=== PATIENT | female | born 1970 | race African-American/Black ===

== ENCOUNTER 2017-03-02 12:56 | Inpatient (IN) ==
[2017-03-02] MEDS ORDERED: HEPARIN LOCK FLUSH 500 UNIT/5 ML SYRINGE IV ONE (14:45)
[2017-03-02] MEDS ORDERED: VANCOMYCIN INJ 1,000 MG in SODIUM CHLORIDE 0.9% 250 ML IV STA (15:05)
[2017-03-02] MEDS ORDERED: VANCOMYCIN 1,000 MG VIAL ONE (15:17)
[2017-03-02] MEDS ORDERED: METOPROLOL TARTRATE 5 MG/5 ML VIAL IV ONE (15:18)
[2017-03-02 15:20] LABS: Basophils % 0.3 % (0.0-0.8); Eosinophils # 0.2 10*3/uL (0.0-0.87); Eosinophils % 3.4 % (0.00-10.9); Hematocrit 38.1 VOL% (35.7-47.0); Hemoglobin 11.4 GM/DL (12.0-16.0); Immature Granulocytes % 0.3 %; Immature Granulocytes Absolute 0.02 #; Lymphocytes # 2.5 10*3/uL (1.4-4.0); Lymphocytes % 35.4 % (21.3-54.2); Mean Corpuscular HGB Conc 29.9 GM/DL (32-36); Mean Corpuscular Hemoglobin 28 PG (27-34); Mean Corpuscular Volume 93.2 FL (87-102); Mean Platelet Volume 12.4 FL (9.6-12.0); Monocytes # 0.6 10*3/uL (0.11-0.8); Monocytes % 8.7 % (1.7-12.7); Neutrophils # 3.7 10*3/uL (1.4-7.4); Neutrophils % 51.9 % (38.7-73.9); Platelet Count 171 T/CUMM (130-400); Red Blood Count 4.09 MC/CUMM (3.8-5.5); Red Cell Distribution Width 16.6 % (9.3-17.3)
[2017-03-02 15:36] LABS: Calcium 8.3 MG/DL (8.5-10.1); Osmolality,Calculated 277.2 MOS/KG (273-304)
[2017-03-02 15:55] LABS: Lactic Acid 2.8 MMOL/L (0.4-2.0)
[2017-03-02 15:57] LABS: Potassium 6.3 MMOL/L (3.5-5.1)
[2017-03-02] MEDS ORDERED: DEXTROSE 50% 25 GM/50 ML VIAL IV STA (16:00)
[2017-03-02] MEDS ORDERED: INSULIN REGULAR 100 UNIT/ML IV STA (16:00)
[2017-03-02] MEDS ORDERED: DEXTROSE 50% 25 GM/50 ML SYRINGE IV ONE (16:19)
[2017-03-02] MEDS ORDERED: INSULIN REGULAR 100 UNIT/ML ONE (16:20)
[2017-03-02 16:30] LABS: Sedimentation Rate-Westergren 50 MM/HR (0-20)
[2017-03-02] MEDS ORDERED: MORPHINE 10 MG/1 ML VIAL IV PRN (16:34)
[2017-03-02] MEDS ORDERED: ONDANSETRON 4 MG/2 ML VIAL IV PRN (16:34)
[2017-03-02] MEDS ORDERED: LEVOFLOXACIN INJ 750 MG in PREMIX 1 EACH IV STA (16:35)
[2017-03-02] MEDS ORDERED: SODIUM CHLORIDE 0.9% 500 ML IV ONE (16:36)
[2017-03-02] MEDS ORDERED: SODIUM POLYSTYRENE SULFATE 15 GM/60 ML BOTTLE PO STA (16:44)
[2017-03-02] MEDS ORDERED: LEVOFLOXACIN INJ 150 ML IV ONE (17:19)
[2017-03-02] MEDS ORDERED: SODIUM POLYSTYRENE SULFATE 15 GM/60 ML BOTTLE ONE (17:19)
[2017-03-02] MEDS ORDERED: ONDANSETRON 4 MG/2 ML VIAL ONE (17:19)
[2017-03-02] MEDS: ENOXAPARIN 30 MG/0.3 ML SYRINGE SUBCUT SCH (20:25)
[2017-03-03 00:56] LABS: Basophils % 0.2 % (0.0-0.8); Eosinophils # 0.2 10*3/uL (0.0-0.87); Eosinophils % 2.9 % (0.00-10.9); Hematocrit 34.5 VOL% (35.7-47.0); Hemoglobin 10.7 GM/DL (12.0-16.0); Immature Granulocytes % 0.2 %; Immature Granulocytes Absolute 0.01 #; Lymphocytes # 2.2 10*3/uL (1.4-4.0); Mean Corpuscular Hemoglobin 28 PG (27-34); Mean Corpuscular Volume 91.3 FL (87-102); Mean Platelet Volume 10.8 FL (9.6-12.0); Monocytes # 0.5 10*3/uL (0.11-0.8); Monocytes % 7.9 % (1.7-12.7); Neutrophils # 3.4 10*3/uL (1.4-7.4); Neutrophils % 53.8 % (38.7-73.9); Platelet Count 137 T/CUMM (130-400); Red Blood Count 3.78 MC/CUMM (3.8-5.5); Red Cell Distribution Width 16.6 % (9.3-17.3); White Blood Count 6.2 T/CUMM (4-12)
[2017-03-03 01:46] LABS: Calcium 7.2 MG/DL (8.5-10.1); Osmolality,Calculated 294.1 MOS/KG (273-304); Potassium 4.4 MMOL/L (3.5-5.1)
[2017-03-03] MEDS ORDERED: BUPIVACAINE 0.25% 50 ML VIAL ONE (07:39)
[2017-03-03] MEDS ORDERED: HEPARIN 5,000 UNIT/1 ML VIAL ONE (07:39)
[2017-03-03] MEDS: SODIUM CHLORIDE 0.9% 250 ML IV SCH ×2 (08:10→21:02)
[2017-03-03] MEDS ORDERED: PROPOFOL 200 MG/20 ML VIAL IV ONE (09:10)
[2017-03-03] MEDS ORDERED: ONDANSETRON 4 MG/2 ML VIAL ONE (09:10)
[2017-03-03] MEDS ORDERED: MIDAZOLAM 2 MG/2 ML VIAL ONE (09:10)
[2017-03-03] MEDS ORDERED: DEXAMETHASONE 4 MG/1 ML VIAL ONE (09:10)
[2017-03-03] MEDS ORDERED: GLUCAGON 1 MG VIAL IM PRN (11:09)
[2017-03-03] MEDS: ENOXAPARIN 30 MG/0.3 ML SYRINGE SUBCUT SCH (21:07)
[2017-03-04] MEDS ORDERED: ACETAMINOPHEN 325 MG TABLET PO PRN (08:29)
[2017-03-04] MEDS ORDERED: LEVOFLOXACIN INJ 500 MG in PREMIX 1 EACH IV SCH (18:00)
[2017-03-04] MEDS: LINACLOTIDE 145 MCG CAPSULE PO SCH (18:04)
[2017-03-04] MEDS: ENOXAPARIN 30 MG/0.3 ML SYRINGE SUBCUT SCH (20:59)
[2017-03-04] MEDS ORDERED: ZALEPLON 5 MG CAPSULE PO SCH (21:00)
[2017-03-04] MEDS ORDERED: LEVOFLOXACIN 500 MG TABLET PO SCH (21:00)
[2017-03-05 05:46] LABS: Basophils % 0.3 % (0.0-0.8); Eosinophils # 0.2 10*3/uL (0.0-0.87); Eosinophils % 2.8 % (0.00-10.9); Hematocrit 34.7 VOL% (35.7-47.0); Hemoglobin 10.6 GM/DL (12.0-16.0); Immature Granulocytes % 0.3 %; Immature Granulocytes Absolute 0.02 #; Lymphocytes # 2.8 10*3/uL (1.4-4.0); Lymphocytes % 41.5 % (21.3-54.2); Mean Corpuscular HGB Conc 30.5 GM/DL (32-36); Mean Corpuscular Hemoglobin 28 PG (27-34); Mean Corpuscular Volume 91.1 FL (87-102); Mean Platelet Volume 10.9 FL (9.6-12.0); Monocytes # 0.5 10*3/uL (0.11-0.8); Monocytes % 7.9 % (1.7-12.7); Neutrophils # 3.2 10*3/uL (1.4-7.4); Neutrophils % 47.2 % (38.7-73.9); Platelet Count 127 T/CUMM (130-400); Red Blood Count 3.81 MC/CUMM (3.8-5.5); Red Cell Distribution Width 16.4 % (9.3-17.3); White Blood Count 6.8 T/CUMM (4-12)
[2017-03-05 06:17] LABS: Calcium 6.7 MG/DL (8.5-10.1); Osmolality,Calculated 291.4 MOS/KG (273-304); Potassium 4.1 MMOL/L (3.5-5.1)
[2017-03-05 07:30] VITALS: BP 96/39
[2017-03-05] MEDS ORDERED: RIVAROXABAN 20 MG TABLET PO SCH (09:00)
[2017-03-05] MEDS ORDERED: ASPIRIN EC 81 MG TABLET PO SCH (09:00)
[2017-03-05] MEDS: LINACLOTIDE 145 MCG CAPSULE PO SCH (14:43)
== END 2017-03-05 16:19 | disposition home or self-care (01) | DRG 314 ==
LOC: N.ED 12:56 → SUATTDRO 16:25 → N.EDINP 16:25 → N.5E 18:18
PROVIDERS: ADMIT Pediatrics; ATTEND Hospitalist

== ENCOUNTER 2017-08-03 01:52 | Inpatient (IN) ==
[2017-08-03] MEDS ORDERED: SODIUM CHLORIDE 0.9% 500 ML IV STA (02:07)
[2017-08-03] MEDS ORDERED: ACETAMINOPHEN 325 MG TABLET PO ONE (02:07)
[2017-08-03] MEDS ORDERED: ONDANSETRON 4 MG/2 ML VIAL IV ONE (02:07)
[2017-08-03 02:30] LABS: Basophils % 0.2 % (0.0-0.8); Eosinophils % 0.5 % (0.00-10.9); Hematocrit 31.1 VOL% (35.7-47.0); Hemoglobin 9.6 GM/DL (12.0-16.0); Immature Granulocytes % 0.2 %; Immature Granulocytes Absolute 0.02 #; Lymphocytes # 1.3 10*3/uL (1.4-4.0); Mean Corpuscular HGB Conc 30.9 GM/DL (32-36); Mean Corpuscular Hemoglobin 29 PG (27-34); Mean Corpuscular Volume 92.8 FL (87-102); Mean Platelet Volume 10.7 FL (9.6-12.0); Monocytes # 0.5 10*3/uL (0.11-0.8); Monocytes % 6.2 % (1.7-12.7); Neutrophils # 6.5 10*3/uL (1.4-7.4); Neutrophils % 77.9 % (38.7-73.9); Platelet Count 137 T/CUMM (130-400); Red Blood Count 3.35 MC/CUMM (3.8-5.5); Red Cell Distribution Width 15.9 % (9.3-17.3); White Blood Count 8.3 T/CUMM (4-12)
[2017-08-03] MEDS ORDERED: MORPHINE 4 MG/1 ML VIAL IV ONE ×2 (02:33→03:40)
[2017-08-03 02:40] LABS: INR 1.1; PT Patient Result 11.8 SECS
[2017-08-03 02:50] LABS: Alanine Aminotransferase 18 U/L (13-56); Alkaline Phosphatase 87 U/L (45-117); Aspartate Amino Transferase 27 U/L (0-37); Blood Urea Nitrogen 37 MG/DL (7-18); Calcium 10.4 MG/DL (8.5-10.1); Glucose 78 MG/DL (74-106); Lactic Acid 2.3 MMOL/L (0.4-2.0); Osmolality,Calculated 284.5 MOS/KG (273-304); Potassium 4.3 MMOL/L (3.5-5.1); Sodium 139 MMOL/L (136-145); Total Protein 6.9 G/DL (6.4-8.3)
[2017-08-03] MEDS ORDERED: VANCOMYCIN INJ 1,000 MG in SODIUM CHLORIDE 0.9% 250 ML IV STA (03:14)
[2017-08-03] MEDS ORDERED: LEVOFLOXACIN INJ 500 MG in PREMIX 1 EACH IV STA (03:14)
[2017-08-03] MEDS ORDERED: CYCLOBENZAPRINE 10 MG TABLET PO PRN (07:32)
[2017-08-03] MEDS ORDERED: MORPHINE 4 MG/1 ML VIAL IV PRN (07:32)
[2017-08-03] MEDS ORDERED: ONDANSETRON 4 MG/2 ML VIAL IV PRN (07:32)
[2017-08-03] MEDS ORDERED: ACETAMINOPHEN 325 MG TABLET PO PRN (07:32)
[2017-08-03] MEDS ORDERED: ENOXAPARIN 30 MG/0.3 ML SYRINGE SUBCUT SCH (07:32)
[2017-08-03] MEDS ORDERED: traZODone 50 MG TABLET PO PRN (07:32)
[2017-08-03] MEDS ORDERED: LACTATED RINGERS 500 ML IV ONE (07:32)
[2017-08-03] MEDS ORDERED: LIDOCAINE/PRILOCAINE CREAM 5 GM TUBE TOP SCH (07:32)
[2017-08-03] MEDS: CALCIUM ACETATE 667 MG CAPSULE PO SCH ×3 (08:00→11:16)
[2017-08-03] MEDS ORDERED: VANCOMYCIN INJ 1,000 MG in SODIUM CHLORIDE 0.9% 250 ML IV ONE (08:00)
[2017-08-03] MEDS ORDERED: MULTIVITAMIN (CENTRUM) TABLET PO SCH (09:00)
[2017-08-03] MEDS ORDERED: CALCIUM (CARBONATE)/VITAMIN D 600 MG-400 UNIT TABLET PO SCH (09:00)
[2017-08-03] MEDS ORDERED: ESTRADIOL 1 MG TABLET PO SCH (09:00)
[2017-08-03] MEDS ORDERED: VANCOMYCIN INJ 2,000 MG in SODIUM CHLORIDE 0.9% 500 ML IV ONE (09:00)
[2017-08-03] MEDS ORDERED: LINACLOTIDE 145 MCG CAPSULE PO SCH (09:00)
[2017-08-03] MEDS ORDERED: CALCITRIOL 0.5 MCG CAPSULE PO SCH (09:00)
[2017-08-03] MEDS ORDERED: PANTOPRAZOLE 40 MG TABLET PO SCH (09:00)
[2017-08-03] MEDS ORDERED: ASPIRIN EC 81 MG TABLET PO SCH (09:00)
[2017-08-03] MEDS ORDERED: DOCUSATE SODIUM 100 MG CAPSULE PO SCH (09:00)
[2017-08-03] MEDS ORDERED: SODIUM CHLORIDE 0.9% 250 ML IV ONE (10:54)
[2017-08-03 13:39] VITALS: BP 87/47
[2017-08-03] MEDS ORDERED: GABAPENTIN 300 MG CAPSULE PO SCH (21:00)
[2017-08-04] MEDS ORDERED: VANCOMYCIN INJ 750 MG in SODIUM CHLORIDE 0.9% 250 ML IV PRN (05:00)
[2017-08-05] MEDS ORDERED: LEVOFLOXACIN INJ 500 MG in PREMIX 1 EACH IV SCH (05:30)
== END 2017-08-03 15:35 | disposition hospice, home (50) | DRG 314 ==
LOC: EDUNIT# → EDSEX → N.ED 01:52 → SUATTDRO 04:51 → N.EDINP 04:51 → N.3E 05:19
PROVIDERS: ADMIT Hospitalist; ATTEND Internal Medicine

== ENCOUNTER 2019-02-09 11:15 | Inpatient (IN) ==
[2019-02-09] MEDS ORDERED: SODIUM CHLORIDE 0.9% 500 ML IV STA (11:46)
[2019-02-09] MEDS ORDERED: ASPIRIN 325 MG TABLET PO STA (11:46)
[2019-02-09 12:29] LABS: INR 0.9; PT Patient Result 10.2 SECS (9.6-12.2)
[2019-02-09 12:35] LABS: Partial Thromboplastin Time 40.6 SECS (20.8-36.0)
[2019-02-09 12:36] LABS: Basophils % 0.4 % (0.0-0.8); Eosinophils # 0.1 10*3/uL (0.0-0.87); Hematocrit 40.7 VOL% (35.7-47.0); Immature Granulocytes % 0.3 %; Immature Granulocytes Absolute 0.03 #; Lymphocytes # 1.8 10*3/uL (1.4-4.0); Lymphocytes % 19.8 % (21.3-54.2); Mean Corpuscular Volume 93.3 FL (87-102); Mean Platelet Volume 10.5 FL (9.6-12.0); Monocytes % 8.7 % (1.7-12.7); Neutrophils % 69.8 % (38.7-73.9); Platelet Count 188 T/CUMM (130-400); Red Blood Count 4.36 MC/CUMM (3.8-5.5); Red Cell Distribution Width 17.2 % (9.3-17.3); White Blood Count 9.1 T/CUMM (4-12)
[2019-02-09 12:37] LABS: Hemoglobin 12.2 GM/DL (12.0-16.0)
[2019-02-09 12:53] LABS: Albumin 3.1 G/DL (3.4-5.0); Bilirubin,Total 0.5 MG/DL (0.2-1.0); Osmolality,Calculated 265.2 MOS/KG (273-304); Total Protein 8.5 G/DL (6.4-8.3)
[2019-02-09] MEDS ORDERED: ONDANSETRON 4 MG/2 ML VIAL IV PRN (16:01)
[2019-02-09] MEDS ORDERED: NITROGLYCERIN SL 0.4 MG TABLET SL PRN (16:04)
[2019-02-09 16:34] LABS: Risk Ratio 2.72; Thyroid Stimulating Hormone 0.979 uIU/ml (0.358-3.74); VLDL CHOLESTEROL 18.6 MG/DL
[2019-02-09] MEDS: CALCIUM ACETATE 667 MG CAPSULE PO SCH (17:16)
[2019-02-09] MEDS ORDERED: ALUM/MAG/SIMETH/LIDO VISC 1:1 30 ML BOTTLE PO ONE (17:54)
[2019-02-09] MEDS: ESTRADIOL 1 MG TABLET PO SCH (21:00)
[2019-02-09] MEDS: CALCIUM (CARBONATE) 600 MG TABLET PO SCH (21:00)
[2019-02-09] MEDS: CITALOPRAM 20 MG TABLET PO SCH (21:00)
[2019-02-09] MEDS: ACETAMINOPHEN 325 MG TABLET PO PRN (21:01)
[2019-02-09] MEDS: APIXABAN 5 MG TABLET PO SCH (21:01)
[2019-02-09] MEDS: DOCUSATE SODIUM 100 MG CAPSULE PO SCH (21:01)
[2019-02-10 05:32] LABS: Basophils % 0.3 % (0.0-0.8); Eosinophils # 0.1 10*3/uL (0.0-0.87); Eosinophils % 1.1 % (0.00-10.9); Hematocrit 37.3 VOL% (35.7-47.0); Hemoglobin 11.1 GM/DL (12.0-16.0); Immature Granulocytes % 0.6 %; Immature Granulocytes Absolute 0.06 #; Lymphocytes # 1.1 10*3/uL (1.4-4.0); Lymphocytes % 11.8 % (21.3-54.2); Mean Corpuscular HGB Conc 29.8 GM/DL (32-36); Mean Platelet Volume 10.5 FL (9.6-12.0); Monocytes % 7.8 % (1.7-12.7); Neutrophils % 78.4 % (38.7-73.9); Platelet Count 162 T/CUMM (130-400); Red Blood Count 3.97 MC/CUMM (3.8-5.5); Red Cell Distribution Width 16.9 % (9.3-17.3); White Blood Count 9.3 T/CUMM (4-12)
[2019-02-10 05:49] LABS: Osmolality,Calculated 277.7 MOS/KG (273-304)
[2019-02-10] MEDS ORDERED: DAPTOmycin 350 MG VIAL IV SCH (08:45)
[2019-02-10] MEDS: CALCIUM ACETATE 667 MG CAPSULE PO SCH ×3 (09:23→16:59)
[2019-02-10] MEDS: ASPIRIN EC 81 MG TABLET PO SCH (09:24)
[2019-02-10] MEDS: MULTIVITAMIN (CENTRUM) TABLET PO SCH (09:24)
[2019-02-10] MEDS: APIXABAN 5 MG TABLET PO SCH ×2 (09:24→21:37)
[2019-02-10] MEDS: PANTOPRAZOLE 40 MG TABLET PO SCH (09:24)
[2019-02-10] MEDS: ACETAMINOPHEN 325 MG TABLET PO PRN (09:25)
[2019-02-10] MEDS: CALCIUM (CARBONATE) 600 MG TABLET PO SCH ×2 (09:25→21:37)
[2019-02-10] MEDS: POTASSIUM CHLORIDE 20 MEQ TABLET PO PRN (09:25)
[2019-02-10] MEDS: DOCUSATE SODIUM 100 MG CAPSULE PO SCH ×2 (09:26→21:37)
[2019-02-10] MEDS: LINACLOTIDE 145 MCG CAPSULE PO SCH (09:27)
[2019-02-10] MEDS: OXYBUTYNIN XL 5 MG TABLET PO SCH (09:27)
[2019-02-10] MEDS: MIDODRINE 5 MG TABLET PO SCH (16:59)
[2019-02-10] MEDS: CITALOPRAM 20 MG TABLET PO SCH (21:37)
[2019-02-10] MEDS: ESTRADIOL 1 MG TABLET PO SCH (21:37)
[2019-02-11] MEDS: CALCIUM (CARBONATE) 600 MG TABLET PO SCH ×2 (08:46→21:14)
[2019-02-11] MEDS: CALCIUM ACETATE 667 MG CAPSULE PO SCH ×3 (08:46→16:08)
[2019-02-11] MEDS: APIXABAN 5 MG TABLET PO SCH ×2 (08:47→21:14)
[2019-02-11] MEDS: OXYBUTYNIN XL 5 MG TABLET PO SCH (08:47)
[2019-02-11] MEDS: DOCUSATE SODIUM 100 MG CAPSULE PO SCH ×2 (08:47→21:14)
[2019-02-11] MEDS: PANTOPRAZOLE 40 MG TABLET PO SCH (08:47)
[2019-02-11] MEDS: POTASSIUM CHLORIDE 20 MEQ TABLET PO PRN ×3 (08:47→23:45)
[2019-02-11] MEDS: ASPIRIN EC 81 MG TABLET PO SCH (08:48)
[2019-02-11] MEDS: MULTIVITAMIN (CENTRUM) TABLET PO SCH (08:48)
[2019-02-11] MEDS: LINACLOTIDE 145 MCG CAPSULE PO SCH (08:48)
[2019-02-11] MEDS: ESTRADIOL 1 MG TABLET PO SCH (21:14)
[2019-02-11] MEDS: CITALOPRAM 20 MG TABLET PO SCH (21:14)
[2019-02-12] MEDS: POTASSIUM CHLORIDE 20 MEQ TABLET PO PRN (01:53)
[2019-02-12] MEDS: OXYBUTYNIN XL 5 MG TABLET PO SCH (08:23)
[2019-02-12] MEDS: MULTIVITAMIN (CENTRUM) TABLET PO SCH (08:23)
[2019-02-12] MEDS: APIXABAN 5 MG TABLET PO SCH ×2 (08:23→20:19)
[2019-02-12] MEDS: CALCIUM (CARBONATE) 600 MG TABLET PO SCH ×2 (08:23→20:18)
[2019-02-12] MEDS: CALCIUM ACETATE 667 MG CAPSULE PO SCH ×3 (08:23→16:06)
[2019-02-12] MEDS: DOCUSATE SODIUM 100 MG CAPSULE PO SCH ×2 (08:23→20:19)
[2019-02-12] MEDS: PANTOPRAZOLE 40 MG TABLET PO SCH (08:23)
[2019-02-12] MEDS: LINACLOTIDE 145 MCG CAPSULE PO SCH (08:24)
[2019-02-12] MEDS: ASPIRIN EC 81 MG TABLET PO SCH (08:24)
[2019-02-12] MEDS ORDERED: HEPARIN 10,000 UNIT/10 ML VIAL IV SCH (11:00)
[2019-02-12] MEDS ORDERED: BUPIVACAINE MPF 0.25% 30 ML VIAL ONE (12:52)
[2019-02-12] MEDS ORDERED: PHENYLEPHRINE 1 MG/10 ML SYRINGE IV ONE (14:06)
[2019-02-12] MEDS ORDERED: MIDAZOLAM 2 MG/2 ML VIAL ONE (14:06)
[2019-02-12] MEDS: MIDODRINE 5 MG TABLET PO SCH (15:06)
[2019-02-12] MEDS: CITALOPRAM 20 MG TABLET PO SCH (20:19)
[2019-02-12] MEDS: ESTRADIOL 1 MG TABLET PO SCH (20:19)
[2019-02-13] MEDS: LINACLOTIDE 145 MCG CAPSULE PO SCH (09:04)
[2019-02-13] MEDS: ASPIRIN EC 81 MG TABLET PO SCH (09:04)
[2019-02-13] MEDS: CALCIUM ACETATE 667 MG CAPSULE PO SCH ×3 (09:04→16:35)
[2019-02-13] MEDS: CALCIUM (CARBONATE) 600 MG TABLET PO SCH ×2 (09:04→21:41)
[2019-02-13] MEDS: PANTOPRAZOLE 40 MG TABLET PO SCH (09:04)
[2019-02-13] MEDS: MULTIVITAMIN (CENTRUM) TABLET PO SCH (09:05)
[2019-02-13] MEDS: DOCUSATE SODIUM 100 MG CAPSULE PO SCH ×2 (09:05→21:39)
[2019-02-13] MEDS: APIXABAN 5 MG TABLET PO SCH ×2 (09:05→21:41)
[2019-02-13] MEDS: OXYBUTYNIN XL 5 MG TABLET PO SCH (09:05)
[2019-02-13 09:21] LABS: Calcium 8.2 MG/DL (8.5-10.1); Osmolality,Calculated 280.8 MOS/KG (273-304)
[2019-02-13 09:27] LABS: Basophils % 0.4 % (0.0-0.8); Eosinophils # 0.2 10*3/uL (0.0-0.87); Eosinophils % 2.7 % (0.00-10.9); Hematocrit 34.2 VOL% (35.7-47.0); Immature Granulocytes % 0.4 %; Immature Granulocytes Absolute 0.03 #; Lymphocytes # 1.7 10*3/uL (1.4-4.0); Mean Corpuscular HGB Conc 29.5 GM/DL (32-36); Mean Corpuscular Volume 93.7 FL (87-102); Mean Platelet Volume 10.7 FL (9.6-12.0); Monocytes % 13.2 % (1.7-12.7); Neutrophils % 59.3 % (38.7-73.9); Platelet Count 169 T/CUMM (130-400); Red Blood Count 3.65 MC/CUMM (3.8-5.5); Red Cell Distribution Width 16.9 % (9.3-17.3)
[2019-02-13 09:28] LABS: Hemoglobin 10.1 GM/DL (12.0-16.0)
[2019-02-13] MEDS: ESTRADIOL 1 MG TABLET PO SCH (21:41)
[2019-02-13] MEDS: CITALOPRAM 20 MG TABLET PO SCH (21:41)
[2019-02-14 06:29] LABS: Basophils % 0.7 % (0.0-0.8); Eosinophils # 0.2 10*3/uL (0.0-0.87); Eosinophils % 3.7 % (0.00-10.9); Hematocrit 34.6 VOL% (35.7-47.0); Hemoglobin 10.3 GM/DL (12.0-16.0); Immature Granulocytes % 0.2 %; Immature Granulocytes Absolute 0.01 #; Lymphocytes # 2.4 10*3/uL (1.4-4.0); Lymphocytes % 40.5 % (21.3-54.2); Mean Corpuscular HGB Conc 29.8 GM/DL (32-36); Mean Corpuscular Volume 92.8 FL (87-102); Mean Platelet Volume 10.5 FL (9.6-12.0); Monocytes % 8.6 % (1.7-12.7); Neutrophils % 46.3 % (38.7-73.9); Platelet Count 174 T/CUMM (130-400); Red Blood Count 3.73 MC/CUMM (3.8-5.5); Red Cell Distribution Width 16.9 % (9.3-17.3); White Blood Count 5.9 T/CUMM (4-12)
[2019-02-14 06:44] LABS: Calcium 8.5 MG/DL (8.5-10.1); Osmolality,Calculated 288.7 MOS/KG (273-304)
[2019-02-14] MEDS: CALCIUM ACETATE 667 MG CAPSULE PO SCH ×3 (10:51→18:08)
[2019-02-14] MEDS: MULTIVITAMIN (CENTRUM) TABLET PO SCH (10:51)
[2019-02-14] MEDS: CALCIUM (CARBONATE) 600 MG TABLET PO SCH ×2 (10:51→21:18)
[2019-02-14] MEDS: APIXABAN 5 MG TABLET PO SCH ×2 (10:52→21:17)
[2019-02-14] MEDS: PANTOPRAZOLE 40 MG TABLET PO SCH (10:52)
[2019-02-14] MEDS: DOCUSATE SODIUM 100 MG CAPSULE PO SCH ×2 (10:52→21:17)
[2019-02-14] MEDS: ASPIRIN EC 81 MG TABLET PO SCH (10:52)
[2019-02-14] MEDS: OXYBUTYNIN XL 5 MG TABLET PO SCH (10:54)
[2019-02-14] MEDS: LINACLOTIDE 145 MCG CAPSULE PO SCH (10:54)
[2019-02-14] MEDS: CITALOPRAM 20 MG TABLET PO SCH (21:16)
[2019-02-14] MEDS: ESTRADIOL 1 MG TABLET PO SCH (21:17)
[2019-02-15 04:52] LABS: Basophils # 0.1 10*3/uL (0.0-0.2); Basophils % 0.8 % (0.0-0.8); Eosinophils # 0.2 10*3/uL (0.0-0.87); Eosinophils % 3.7 % (0.00-10.9); Hematocrit 33.4 VOL% (35.7-47.0); Hemoglobin 9.8 GM/DL (12.0-16.0); Immature Granulocytes % 0.2 %; Immature Granulocytes Absolute 0.01 #; Lymphocytes # 2.4 10*3/uL (1.4-4.0); Lymphocytes % 40.7 % (21.3-54.2); Mean Corpuscular HGB Conc 29.3 GM/DL (32-36); Mean Platelet Volume 10.4 FL (9.6-12.0); Monocytes % 7.6 % (1.7-12.7); Platelet Count 179 T/CUMM (130-400); Red Blood Count 3.59 MC/CUMM (3.8-5.5); Red Cell Distribution Width 16.7 % (9.3-17.3)
[2019-02-15 05:18] LABS: Calcium 8.3 MG/DL (8.5-10.1); Osmolality,Calculated 302.8 MOS/KG (273-304)
[2019-02-15] MEDS ORDERED: CLINDAMYCIN INJ 900 MG in PREMIX 1 EACH IV ONE (06:00)
[2019-02-15] MEDS ORDERED: BUPIVACAINE MPF 0.25% 30 ML VIAL ONE (06:31)
[2019-02-15] MEDS ORDERED: HEPARIN 5,000 UNIT/1 ML VIAL ONE (06:31)
[2019-02-15] MEDS ORDERED: TISSUE ADHESIVE 1 EACH APPLICATOR TOP ONE (06:31)
[2019-02-15] MEDS ORDERED: LIDOCAINE 1%/EPI INJ 20 ML VIAL ONE (06:31)
[2019-02-15] MEDS ORDERED: SODIUM CHLORIDE 0.9% 250 ML IV SCH (07:30)
[2019-02-15] MEDS: ASPIRIN EC 81 MG TABLET PO SCH (08:42)
[2019-02-15] MEDS: CALCIUM ACETATE 667 MG CAPSULE PO SCH ×3 (08:42→17:04)
[2019-02-15] MEDS: APIXABAN 5 MG TABLET PO SCH ×2 (08:43→21:36)
[2019-02-15] MEDS: OXYBUTYNIN XL 5 MG TABLET PO SCH (08:43)
[2019-02-15] MEDS: LINACLOTIDE 145 MCG CAPSULE PO SCH (08:43)
[2019-02-15] MEDS: MULTIVITAMIN (CENTRUM) TABLET PO SCH (08:43)
[2019-02-15] MEDS: DOCUSATE SODIUM 100 MG CAPSULE PO SCH ×2 (08:43→21:39)
[2019-02-15] MEDS: CALCIUM (CARBONATE) 600 MG TABLET PO SCH ×2 (08:43→21:35)
[2019-02-15] MEDS: PANTOPRAZOLE 40 MG TABLET PO SCH (08:43)
[2019-02-15] MEDS ORDERED: SEVOFLURANE 1 UNIT/15 MINUTE INH ONE (09:27)
[2019-02-15] MEDS ORDERED: LIDOCAINE 2% 5 ML VIAL ONE (09:27)
[2019-02-15] MEDS ORDERED: fentaNYL 100 MCG/2 ML VIAL ONE (09:27)
[2019-02-15] MEDS ORDERED: MIDAZOLAM 2 MG/2 ML VIAL ONE (09:27)
[2019-02-15] MEDS ORDERED: propofoL 200 MG/20 ML VIAL IV ONE (09:27)
[2019-02-15] MEDS ORDERED: PHENYLEPHRINE 1 MG/10 ML SYRINGE IV ONE (09:28)
[2019-02-15] MEDS ORDERED: GLYCOPYRROLATE 0.4 MG/2 ML VIAL ONE (09:28)
[2019-02-15] MEDS ORDERED: ePHEDrine 50 MG/ML AMP ONE (09:28)
[2019-02-15] MEDS: MIDODRINE 5 MG TABLET PO SCH (17:04)
[2019-02-15] MEDS: ESTRADIOL 1 MG TABLET PO SCH (21:35)
[2019-02-15] MEDS: CITALOPRAM 20 MG TABLET PO SCH (21:35)
[2019-02-16 03:35] VITALS: BP 85/30
[2019-02-16 04:56] LABS: Basophils # 0.1 10*3/uL (0.0-0.2); Basophils % 0.8 % (0.0-0.8); Eosinophils # 0.3 10*3/uL (0.0-0.87); Eosinophils % 4.4 % (0.00-10.9); Hematocrit 33.5 VOL% (35.7-47.0); Hemoglobin 9.9 GM/DL (12.0-16.0); Immature Granulocytes % 0.2 %; Immature Granulocytes Absolute 0.01 #; Lymphocytes # 2.3 10*3/uL (1.4-4.0); Lymphocytes % 36.9 % (21.3-54.2); Mean Corpuscular HGB Conc 29.6 GM/DL (32-36); Mean Corpuscular Volume 92.8 FL (87-102); Mean Platelet Volume 10.4 FL (9.6-12.0); Monocytes % 6.1 % (1.7-12.7); Neutrophils % 51.6 % (38.7-73.9); Platelet Count 198 T/CUMM (130-400); Red Blood Count 3.61 MC/CUMM (3.8-5.5); Red Cell Distribution Width 16.6 % (9.3-17.3); White Blood Count 6.1 T/CUMM (4-12)
[2019-02-16 05:08] LABS: Calcium 8.3 MG/DL (8.5-10.1); Osmolality,Calculated 285.3 MOS/KG (273-304)
[2019-02-16] MEDS: OXYBUTYNIN XL 5 MG TABLET PO SCH (09:55)
[2019-02-16] MEDS: APIXABAN 5 MG TABLET PO SCH (09:55)
[2019-02-16] MEDS: CALCIUM (CARBONATE) 600 MG TABLET PO SCH (09:55)
[2019-02-16] MEDS: PANTOPRAZOLE 40 MG TABLET PO SCH (09:55)
[2019-02-16] MEDS: CALCIUM ACETATE 667 MG CAPSULE PO SCH (09:55)
[2019-02-16] MEDS: ASPIRIN EC 81 MG TABLET PO SCH (09:55)
[2019-02-16] MEDS: MULTIVITAMIN (CENTRUM) TABLET PO SCH (09:55)
[2019-02-16] MEDS: DOCUSATE SODIUM 100 MG CAPSULE PO SCH (09:56)
[2019-02-16] MEDS: LINACLOTIDE 145 MCG CAPSULE PO SCH (10:20)
== END 2019-02-16 12:42 | disposition home or self-care (01) | DRG 314 ==
LOC: N.EDINP 11:15 → N.ED 11:15 → SUATTDRO 15:48 → N.2W 16:47 → SUATTDRO 02-10 09:30 → N.5E 02-10 10:55
PROVIDERS: ADMIT Internal Medicine Nephrology; ATTEND Internal Medicine

== ENCOUNTER 2019-04-30 12:20 | Inpatient (IN) ==
[2019-04-30] MEDS ORDERED: HYDROmorphone 2 MG/1 ML VIAL IV STA (12:46)
[2019-04-30 13:01] LABS: Basophils % 0.4 % (0.0-0.8); Eosinophils # 0.1 10*3/uL (0.0-0.87); Eosinophils % 0.8 % (0.00-10.9); Hematocrit 39.9 VOL% (35.7-47.0); Hemoglobin 12.1 GM/DL (12.0-16.0); Immature Granulocytes % 0.2 %; Immature Granulocytes Absolute 0.02 #; Lymphocytes # 0.8 10*3/uL (1.4-4.0); Lymphocytes % 9.6 % (21.3-54.2); Mean Corpuscular HGB Conc 30.3 GM/DL (32-36); Mean Corpuscular Volume 90.7 FL (87-102); Mean Platelet Volume 10.4 FL (9.6-12.0); Monocytes % 8.2 % (1.7-12.7); Neutrophils % 80.8 % (38.7-73.9); Platelet Count 141 T/CUMM (130-400); Red Cell Distribution Width 15.9 % (9.3-17.3); White Blood Count 8.4 T/CUMM (4-12)
[2019-04-30] MEDS ORDERED: SODIUM CHLORIDE 0.9% 250 ML IV STA (13:23)
[2019-04-30 13:30] LABS: Albumin 2.9 G/DL (3.4-5.0); Bilirubin,Total 0.4 MG/DL (0.2-1.0); Calcium 7.6 MG/DL (8.5-10.1); Osmolality,Calculated 274.1 MOS/KG (273-304); Total Protein 7.7 G/DL (6.4-8.3)
[2019-04-30 14:25] LABS: INR 1.1; PT Patient Result 11.8 SECS (9.6-12.2)
[2019-04-30] MEDS ORDERED: VANCOMYCIN INJ 1,250 MG in SODIUM CHLORIDE 0.9% 250 ML IV STA (14:38)
[2019-04-30] MEDS ORDERED: GENTAMICIN INJ 90 MG in SODIUM CHLORIDE 0.9% 100 ML IV STA (14:45)
[2019-04-30] MEDS ORDERED: LEVOFLOXACIN INJ 500 MG in PREMIX 1 EACH IV STA (14:45)
[2019-04-30] MEDS ORDERED: GENTAMICIN 80 MG/2 ML VIAL ONE (15:29)
[2019-04-30] MEDS ORDERED: ONDANSETRON 4 MG/2 ML VIAL IV PRN (16:08)
[2019-04-30] MEDS ORDERED: NITROGLYCERIN SL 0.4 MG TABLET SL STA (16:36)
[2019-04-30] MEDS ORDERED: MAGNESIUM SULF RIDER 2 GM in PREMIX 1 EACH IV PRN (17:08)
[2019-04-30] MEDS ORDERED: MAGNESIUM SULF RIDER 4 GM in PREMIX 1 EACH IV PRN (17:08)
[2019-04-30 17:21] LABS: ABG Base Excess 0.4 MMOL/L (-2.5-2.5); ABG HCO3 24.8 MMOL/L (20-26); ABG Oxygen Saturation 97.9 % (95-100); ABG PCO2 31.6 MM HG (35-48); ABG PH 7.475 (7.35-7.45); ABG TCO2 20.5 MMOL/L (23-27)
[2019-04-30 17:50] LABS: Troponin I < 0.015 NG/ML (0.00-0.045)
[2019-04-30] MEDS ORDERED: ASPIRIN CHEW 81 MG TABLET PO ONE (18:09)
[2019-04-30] MEDS ORDERED: ASPIRIN 325 MG TABLET ONE ×2 (18:12→18:14)
[2019-04-30] MEDS: HYDROmorphone 2 MG/1 ML VIAL IV PRN (18:27)
[2019-04-30] MEDS: MIDODRINE 5 MG TABLET PO SCH (18:32)
[2019-04-30] MEDS: SODIUM CHLORIDE 0.9% 1,000 ML IV SCH ×2 (18:33→18:59)
[2019-04-30] MEDS: ALBUTEROL/IPRATROPIUM 3 ML NEB RESP TX SCH (19:43)
[2019-04-30] MEDS ORDERED: MORPHINE 4 MG/1 ML VIAL IV ONE (20:26)
[2019-04-30] MEDS: APIXABAN 5 MG TABLET PO SCH (21:04)
[2019-05-01] MEDS: ACETAMINOPHEN 325 MG TABLET PO PRN (00:05)
[2019-05-01] MEDS: ALBUTEROL/IPRATROPIUM 3 ML NEB RESP TX SCH ×4 (00:58→20:13)
[2019-05-01 06:05] LABS: Basophils % 0.2 % (0.0-0.8); Eosinophils # 0.2 10*3/uL (0.0-0.87); Eosinophils % 1.7 % (0.00-10.9); Hematocrit 36.7 VOL% (35.7-47.0); Hemoglobin 10.9 GM/DL (12.0-16.0); Immature Granulocytes % 0.4 %; Immature Granulocytes Absolute 0.04 #; Lymphocytes # 1.3 10*3/uL (1.4-4.0); Lymphocytes % 14.6 % (21.3-54.2); Mean Corpuscular HGB Conc 29.7 GM/DL (32-36); Mean Corpuscular Volume 91.3 FL (87-102); Mean Platelet Volume 11.2 FL (9.6-12.0); Monocytes % 14.4 % (1.7-12.7); Neutrophils % 68.7 % (38.7-73.9); Platelet Count 152 T/CUMM (130-400); Red Blood Count 4.02 MC/CUMM (3.8-5.5)
[2019-05-01 06:06] LABS: Albumin 2.2 G/DL (3.4-5.0); Bilirubin,Total 1.1 MG/DL (0.2-1.0); Calcium 7.2 MG/DL (8.5-10.1); Osmolality,Calculated 276.2 MOS/KG (273-304)
[2019-05-01] MEDS: APIXABAN 5 MG TABLET PO SCH ×2 (09:54→20:41)
[2019-05-01] MEDS: HYDROmorphone 2 MG/1 ML VIAL IV PRN (20:40)
[2019-05-02] MEDS: ALBUTEROL/IPRATROPIUM 3 ML NEB RESP TX SCH ×4 (00:30→19:50)
[2019-05-02] MEDS: HYDROmorphone 2 MG/1 ML VIAL IV PRN ×2 (02:48→23:30)
[2019-05-02 07:32] LABS: Basophils % 0.1 % (0.0-0.8); Eosinophils # 0.2 10*3/uL (0.0-0.87); Eosinophils % 2.3 % (0.00-10.9); Hematocrit 35.7 VOL% (35.7-47.0); Hemoglobin 10.6 GM/DL (12.0-16.0); Immature Granulocytes % 0.3 %; Immature Granulocytes Absolute 0.02 #; Lymphocytes # 1.2 10*3/uL (1.4-4.0); Lymphocytes % 15.5 % (21.3-54.2); Mean Corpuscular HGB Conc 29.7 GM/DL (32-36); Mean Corpuscular Volume 90.6 FL (87-102); Monocytes % 9.5 % (1.7-12.7); Neutrophils % 72.3 % (38.7-73.9); Platelet Count 161 T/CUMM (130-400); Red Blood Count 3.94 MC/CUMM (3.8-5.5); Red Cell Distribution Width 15.9 % (9.3-17.3)
[2019-05-02 07:48] LABS: Calcium 6.8 MG/DL (8.5-10.1); Osmolality,Calculated 276.5 MOS/KG (273-304)
[2019-05-02] MEDS: APIXABAN 5 MG TABLET PO SCH ×2 (08:53→21:20)
[2019-05-02] MEDS ORDERED: CYCLOBENZAPRINE 10 MG TABLET PO PRN (15:10)
[2019-05-03] MEDS: ALBUTEROL/IPRATROPIUM 3 ML NEB RESP TX SCH ×4 (00:32→19:40)
[2019-05-03 04:56] LABS: Basophils % 0.2 % (0.0-0.8); Eosinophils # 0.3 10*3/uL (0.0-0.87); Eosinophils % 3.3 % (0.00-10.9); Immature Granulocytes % 0.4 %; Immature Granulocytes Absolute 0.03 #; Lymphocytes # 1.7 10*3/uL (1.4-4.0); Lymphocytes % 21.3 % (21.3-54.2); Mean Corpuscular HGB Conc 28.9 GM/DL (32-36); Mean Corpuscular Volume 92.5 FL (87-102); Mean Platelet Volume 10.6 FL (9.6-12.0); Monocytes % 8.9 % (1.7-12.7); Neutrophils % 65.9 % (38.7-73.9); Platelet Count 175 T/CUMM (130-400); Red Blood Count 3.85 MC/CUMM (3.8-5.5); White Blood Count 8.1 T/CUMM (4-12)
[2019-05-03 05:17] LABS: Calcium 6.2 MG/DL (8.5-10.1); Osmolality,Calculated 285.4 MOS/KG (273-304)
[2019-05-03 05:40] LABS: Hemoglobin 10.3 GM/DL (12.0-16.0)
[2019-05-03 05:43] LABS: Hypochromasia 1+; Platelet Estimate Adequate
[2019-05-03] MEDS: MIDODRINE 5 MG TABLET PO SCH (08:30)
[2019-05-03] MEDS: APIXABAN 5 MG TABLET PO SCH ×2 (12:45→20:50)
[2019-05-03] MEDS ORDERED: tiZANidine 4 MG TABLET PO PRN (13:18)
[2019-05-03] MEDS ORDERED: ZALEPLON 5 MG CAPSULE PO PRN (13:18)
[2019-05-03] MEDS ORDERED: LIDOCAINE 1%/EPI INJ 20 ML VIAL ONE (14:17)
[2019-05-03] MEDS ORDERED: propofoL 200 MG/20 ML VIAL IV ONE (15:15)
[2019-05-03] MEDS ORDERED: MIDAZOLAM 2 MG/2 ML VIAL ONE (15:16)
[2019-05-03] MEDS ORDERED: PHENYLEPHRINE 1 MG/10 ML SYRINGE IV ONE (15:16)
[2019-05-03] MEDS ORDERED: LIDOCAINE 2% 5 ML VIAL ONE (15:16)
[2019-05-03] MEDS: LIDOCAINE/PRILOCAINE CREAM 5 GM TUBE TOP SCH (15:53)
[2019-05-03] MEDS: CITALOPRAM 20 MG TABLET PO SCH (20:50)
[2019-05-03] MEDS: ESTRADIOL 1 MG TABLET PO SCH (20:50)
[2019-05-03] MEDS: PANTOPRAZOLE 40 MG TABLET PO SCH (20:50)
[2019-05-03] MEDS: DOCUSATE SODIUM 100 MG CAPSULE PO SCH (20:50)
[2019-05-04] MEDS: ALBUTEROL/IPRATROPIUM 3 ML NEB RESP TX SCH ×4 (02:04→19:25)
[2019-05-04 05:38] LABS: Basophils % 0.7 % (0.0-0.8); Eosinophils # 0.3 10*3/uL (0.0-0.87); Eosinophils % 4.8 % (0.00-10.9); Hematocrit 35.3 VOL% (35.7-47.0); Immature Granulocytes % 0.3 %; Immature Granulocytes Absolute 0.02 #; Lymphocytes # 1.7 10*3/uL (1.4-4.0); Lymphocytes % 27.6 % (21.3-54.2); Mean Corpuscular HGB Conc 29.2 GM/DL (32-36); Mean Corpuscular Volume 92.9 FL (87-102); Mean Platelet Volume 10.6 FL (9.6-12.0); Monocytes % 9.8 % (1.7-12.7); Neutrophils % 56.8 % (38.7-73.9); Platelet Count 183 T/CUMM (130-400); Red Cell Distribution Width 16.2 % (9.3-17.3)
[2019-05-04 05:46] LABS: Calcium 6.7 MG/DL (8.5-10.1); Osmolality,Calculated 281.2 MOS/KG (273-304)
[2019-05-04 06:07] LABS: Hemoglobin 10.4 GM/DL (12.0-16.0)
[2019-05-04 06:26] LABS: Anisocytosis 1+; Hypochromasia 1+; Microcytosis 1+
[2019-05-04 06:27] LABS: Platelet Estimate Adequate
[2019-05-04] MEDS: DOCUSATE SODIUM 100 MG CAPSULE PO SCH ×2 (09:13→20:31)
[2019-05-04] MEDS: PANTOPRAZOLE 40 MG TABLET PO SCH ×2 (09:13→20:31)
[2019-05-04] MEDS: MULTIVITAMIN (CENTRUM) TABLET PO SCH (09:13)
[2019-05-04] MEDS: calcitrioL 0.25 MCG CAPSULE PO SCH (09:13)
[2019-05-04] MEDS: APIXABAN 5 MG TABLET PO SCH ×2 (09:13→20:30)
[2019-05-04] MEDS: LINACLOTIDE 145 MCG CAPSULE PO SCH (09:13)
[2019-05-04] MEDS: ESTRADIOL 1 MG TABLET PO SCH (20:30)
[2019-05-04] MEDS: CITALOPRAM 20 MG TABLET PO SCH (20:31)
[2019-05-05] MEDS: ALBUTEROL/IPRATROPIUM 3 ML NEB RESP TX SCH ×4 (01:58→19:40)
[2019-05-05] MEDS: LINACLOTIDE 145 MCG CAPSULE PO SCH (10:05)
[2019-05-05] MEDS: calcitrioL 0.25 MCG CAPSULE PO SCH (10:05)
[2019-05-05] MEDS: APIXABAN 5 MG TABLET PO SCH ×2 (10:06→20:40)
[2019-05-05] MEDS: DOCUSATE SODIUM 100 MG CAPSULE PO SCH ×2 (10:06→20:40)
[2019-05-05] MEDS: MULTIVITAMIN (CENTRUM) TABLET PO SCH (10:06)
[2019-05-05] MEDS: PANTOPRAZOLE 40 MG TABLET PO SCH ×2 (10:06→20:40)
[2019-05-05] MEDS: MIDODRINE 5 MG TABLET PO SCH (10:06)
[2019-05-05] MEDS ORDERED: DIAZEPAM 5 MG TABLET PO ONE (10:27)
[2019-05-05] MEDS ORDERED: SODIUM CHLORIDE 0.9% 250 ML IV SCH (10:30)
[2019-05-05] MEDS: LIDOCAINE/PRILOCAINE CREAM 5 GM TUBE TOP SCH (14:50)
[2019-05-05 19:44] LABS: Basophils % 0.5 % (0.0-0.8); Eosinophils # 0.3 10*3/uL (0.0-0.87); Eosinophils % 4.1 % (0.00-10.9); Immature Granulocytes % 0.4 %; Immature Granulocytes Absolute 0.03 #; Lymphocytes % 26.9 % (21.3-54.2); Mean Corpuscular HGB Conc 29.7 GM/DL (32-36); Mean Corpuscular Volume 92.5 FL (87-102); Mean Platelet Volume 9.8 FL (9.6-12.0); Monocytes % 7.7 % (1.7-12.7); Neutrophils % 60.4 % (38.7-73.9); Platelet Count 217 T/CUMM (130-400); Red Blood Count 4.11 MC/CUMM (3.8-5.5); Red Cell Distribution Width 16.2 % (9.3-17.3); White Blood Count 7.5 T/CUMM (4-12)
[2019-05-05 19:45] LABS: Hemoglobin 11.3 GM/DL (12.0-16.0)
[2019-05-05 19:48] LABS: Calcium 6.8 MG/DL (8.5-10.1); Osmolality,Calculated 294.1 MOS/KG (273-304)
[2019-05-05] MEDS: ESTRADIOL 1 MG TABLET PO SCH (20:41)
[2019-05-05] MEDS: CITALOPRAM 20 MG TABLET PO SCH (20:41)
[2019-05-06] MEDS: ALBUTEROL/IPRATROPIUM 3 ML NEB RESP TX SCH ×4 (01:08→19:22)
[2019-05-06] MEDS ORDERED: DEXTROSE 50% 25 GM/50 ML VIAL IV ONE ×3 (07:31→11:00)
[2019-05-06] MEDS ORDERED: INSULIN REGULAR 100 UNIT/ML SUBCUT ONE (07:31)
[2019-05-06] MEDS ORDERED: CALCIUM GLUCONATE 2,000 MG in SODIUM CHLORIDE 0.9% 100 ML IV ONE (08:00)
[2019-05-06] MEDS ORDERED: BUPIVACAINE MPF 0.25% 30 ML VIAL ONE (08:01)
[2019-05-06] MEDS ORDERED: LIDOCAINE 1%/EPI INJ 20 ML VIAL ONE (08:01)
[2019-05-06] MEDS ORDERED: HEPARIN 5,000 UNIT/1 ML VIAL ONE (08:01)
[2019-05-06] MEDS ORDERED: DEXTROSE 10% 250 ML IV ONE (08:07)
[2019-05-06] MEDS ORDERED: DIAZEPAM 5 MG TABLET PO ONE (08:30)
[2019-05-06] MEDS ORDERED: SODIUM CHLORIDE 0.9% 250 ML IV SCH (09:00)
[2019-05-06] MEDS ORDERED: propofoL 200 MG/20 ML VIAL IV ONE (10:01)
[2019-05-06] MEDS ORDERED: MIDAZOLAM 2 MG/2 ML VIAL ONE (10:02)
[2019-05-06] MEDS ORDERED: LIDOCAINE 2% 5 ML VIAL ONE (10:02)
[2019-05-06] MEDS ORDERED: ETOMIDATE 40 MG/20 ML VIAL IV ONE (10:02)
[2019-05-06] MEDS ORDERED: fentaNYL 100 MCG/2 ML VIAL ONE (10:02)
[2019-05-06] MEDS ORDERED: ONDANSETRON 4 MG/2 ML VIAL ONE (10:02)
[2019-05-06] MEDS ORDERED: PHENYLEPHRINE 1 MG/10 ML SYRINGE IV ONE (10:03)
[2019-05-06] MEDS ORDERED: ROCURONIUM 100 MG/10 ML VIAL IV ONE (10:03)
[2019-05-06] MEDS ORDERED: SEVOFLURANE 1 UNIT/15 MINUTE INH ONE (10:03)
[2019-05-06] MEDS ORDERED: DEXTROSE 10% 250 ML BAG IV ONE (11:00)
[2019-05-06] MEDS: LINACLOTIDE 145 MCG CAPSULE PO SCH (13:38)
[2019-05-06] MEDS: DOCUSATE SODIUM 100 MG CAPSULE PO SCH ×2 (13:38→20:39)
[2019-05-06] MEDS: APIXABAN 5 MG TABLET PO SCH ×2 (13:38→20:39)
[2019-05-06] MEDS: MULTIVITAMIN (CENTRUM) TABLET PO SCH (13:38)
[2019-05-06] MEDS: calcitrioL 0.25 MCG CAPSULE PO SCH (13:39)
[2019-05-06] MEDS: PANTOPRAZOLE 40 MG TABLET PO SCH ×2 (13:39→20:39)
[2019-05-06] MEDS ORDERED: HYDROmorphone 2 MG/1 ML VIAL ONE (17:03)
[2019-05-06] MEDS: ACETAMINOPHEN 325 MG TABLET PO PRN (19:45)
[2019-05-06] MEDS: ESTRADIOL 1 MG TABLET PO SCH (20:38)
[2019-05-06] MEDS: CITALOPRAM 20 MG TABLET PO SCH (20:39)
[2019-05-07] MEDS: ALBUTEROL/IPRATROPIUM 3 ML NEB RESP TX SCH ×2 (00:55→07:03)
[2019-05-07] MEDS: calcitrioL 0.25 MCG CAPSULE PO SCH (13:15)
[2019-05-07] MEDS: MIDODRINE 5 MG TABLET PO SCH (13:16)
[2019-05-07] MEDS: DOCUSATE SODIUM 100 MG CAPSULE PO SCH (13:16)
[2019-05-07] MEDS: MULTIVITAMIN (CENTRUM) TABLET PO SCH (13:16)
[2019-05-07] MEDS: APIXABAN 5 MG TABLET PO SCH (13:16)
[2019-05-07] MEDS: PANTOPRAZOLE 40 MG TABLET PO SCH (13:17)
[2019-05-07] MEDS: LINACLOTIDE 145 MCG CAPSULE PO SCH (13:17)
[2019-05-07 14:40] VITALS: BP 95/74
== END 2019-05-07 14:50 | disposition home or self-care (01) | DRG 314 ==
LOC: N.ED 12:20 → SUATTDRO 16:08 → N.EDINP 16:08 → N.3E 16:55
PROVIDERS: ADMIT Family Medicine; ATTEND Internal Medicine

== ENCOUNTER 2019-12-31 08:40 | Inpatient (IN) ==
[2019-12-31 09:54] LABS: Eosinophils % 0.8 % (0.00-10.9); Hematocrit 39.9 VOL% (35.7-47.0); Hemoglobin 12.1 GM/DL (12.0-16.0); Lymphocytes # 0.5 10*3/uL (1.4-4.0); Lymphocytes % 17.7 % (21.3-54.2); Mean Corpuscular HGB Conc 30.3 GM/DL (32-36); Mean Corpuscular Volume 89.3 FL (87-102); Mean Platelet Volume 11.9 FL (9.6-12.0); Monocytes % 0.4 % (1.7-12.7); Neutrophils % 81.1 % (38.7-73.9); Platelet Count 155 T/CUMM (130-400); Red Blood Count 4.47 MC/CUMM (3.8-5.5); Red Cell Distribution Width 16.5 % (9.3-17.3); White Blood Count 2.5 T/CUMM (4-12)
[2019-12-31] MEDS ORDERED: CLINDAMYCIN INJ 600 MG in PREMIX 1 EACH IV STA (10:37)
[2019-12-31] MEDS ORDERED: SODIUM CHLORIDE 0.9% 250 ML IV STA (10:38)
[2019-12-31 11:05] LABS: Band Neutrophils 1 % (0-10); Hypochromasia 3+; Lymphocytes 12 % (20-55); Microcytosis 1+; Platelet Estimate Adequate; Polychromasia Slight; Segmented Neutrophils 86 % (50-85); Total Cells Counted 100
[2019-12-31 11:06] LABS: Ovalocytes Few
[2019-12-31] MEDS ORDERED: ONDANSETRON 4 MG/2 ML VIAL IV PRN (11:10)
[2019-12-31] MEDS ORDERED: DEXTROSE 50% 25 GM/50 ML VIAL IV PRN ×2 (11:10→11:40)
[2019-12-31] MEDS ORDERED: DOCUSATE SODIUM 100 MG CAPSULE PO PRN (11:10)
[2019-12-31] MEDS ORDERED: GLUCAGON 1 MG VIAL IM PRN ×2 (11:10→11:40)
[2019-12-31] MEDS ORDERED: HEPARIN 5,000 UNIT/1 ML VIAL SUBCUT SCH (11:30)
[2019-12-31] MEDS: ACETAMINOPHEN 325 MG TABLET PO PRN (12:50)
[2019-12-31] MEDS ORDERED: SODIUM CHLORIDE 0.9% 300 ML IV ONE (14:18)
[2019-12-31] MEDS: GABAPENTIN 300 MG CAPSULE PO SCH (17:34)
[2019-12-31] MEDS: MIDODRINE 5 MG TABLET PO SCH (17:34)
[2019-12-31] MEDS: HYOSCYAMINE 0.125 MG TABLET PO SCH ×2 (17:34→21:15)
[2019-12-31] MEDS: ASPIRIN EC 81 MG TABLET PO SCH (17:34)
[2019-12-31] MEDS: CALCIUM ACETATE 667 MG CAPSULE PO SCH (17:34)
[2019-12-31] MEDS: MEROPENEM 500 MG in SODIUM CHLORIDE 0.9% 100 ML IV SCH (17:35)
[2019-12-31] MEDS ORDERED: APIXABAN 5 MG TABLET PO SCH (21:00)
[2019-12-31] MEDS: CITALOPRAM 20 MG TABLET PO SCH (21:14)
[2019-12-31] MEDS: DOCUSATE SODIUM 100 MG CAPSULE PO SCH (21:15)
[2019-12-31] MEDS: HEPARIN 5,000 UNIT/1 ML VIAL SUBCUT SCH (21:15)
[2020-01-01 06:45] LABS: Basophils % 0.3 % (0.0-0.8); Eosinophils # 0.1 10*3/uL (0.0-0.87); Eosinophils % 0.9 % (0.00-10.9); Hematocrit 36.1 VOL% (35.7-47.0); Hemoglobin 10.9 GM/DL (12.0-16.0); Immature Granulocytes % 0.5 %; Immature Granulocytes Absolute 0.04 #; Lymphocytes % 11.7 % (21.3-54.2); Mean Corpuscular HGB Conc 30.2 GM/DL (32-36); Mean Corpuscular Volume 89.1 FL (87-102); Mean Platelet Volume 10.4 FL (9.6-12.0); Monocytes % 6.8 % (1.7-12.7); Neutrophils % 79.8 % (38.7-73.9); Platelet Count 151 T/CUMM (130-400); Red Blood Count 4.05 MC/CUMM (3.8-5.5); Red Cell Distribution Width 15.9 % (9.3-17.3); White Blood Count 8.7 T/CUMM (4-12)
[2020-01-01 07:00] LABS: Calcium 8.6 MG/DL (8.5-10.1); Osmolality,Calculated 278.8 MOS/KG (273-304)
[2020-01-01] MEDS ORDERED: MEROPENEM 1,000 MG in SODIUM CHLORIDE 0.9% 100 ML IV SCH (09:00)
[2020-01-01] MEDS ORDERED: propofoL 200 MG/20 ML VIAL IV ONE ×2 (10:36)
[2020-01-01] MEDS ORDERED: fentaNYL 100 MCG/2 ML VIAL ONE (10:37)
[2020-01-01] MEDS ORDERED: LIDOCAINE 2% 5 ML VIAL ONE ×2 (10:38→10:46)
[2020-01-01] MEDS ORDERED: MIDAZOLAM 2 MG/2 ML VIAL ONE ×2 (10:43→10:52)
[2020-01-01] MEDS ORDERED: LIDOCAINE 1%/EPI INJ 20 ML VIAL ONE (11:06)
[2020-01-01] MEDS ORDERED: GLYCOPYRROLATE 0.4 MG/2 ML VIAL ONE (11:10)
[2020-01-01] MEDS ORDERED: ETOMIDATE 40 MG/20 ML VIAL IV ONE (11:10)
[2020-01-01] MEDS ORDERED: PHENYLEPHRINE 10 MG/1 ML VIAL IV ONE (11:12)
[2020-01-01] MEDS ORDERED: SODIUM CHLORIDE 0.9% 250 ML IV ONE (11:20)
[2020-01-01] MEDS: CALCIUM ACETATE 667 MG CAPSULE PO SCH ×2 (15:11→20:00)
[2020-01-01] MEDS: ASPIRIN EC 81 MG TABLET PO SCH (15:11)
[2020-01-01] MEDS: DOCUSATE SODIUM 100 MG CAPSULE PO SCH ×2 (15:11→21:01)
[2020-01-01] MEDS: PANTOPRAZOLE 40 MG TABLET PO SCH (15:12)
[2020-01-01] MEDS: HYOSCYAMINE 0.125 MG TABLET PO SCH ×3 (15:12→21:01)
[2020-01-01] MEDS: LINACLOTIDE 145 MCG CAPSULE PO SCH (15:12)
[2020-01-01] MEDS: HEPARIN 5,000 UNIT/1 ML VIAL SUBCUT SCH ×2 (16:11→21:02)
[2020-01-01] MEDS: ACETAMINOPHEN 325 MG TABLET PO PRN (18:35)
[2020-01-01] MEDS: MEROPENEM 500 MG in SODIUM CHLORIDE 0.9% 100 ML IV SCH (18:36)
[2020-01-01] MEDS: CITALOPRAM 20 MG TABLET PO SCH (21:01)
[2020-01-02 06:34] LABS: Basophils % 0.4 % (0.0-0.8); Eosinophils # 0.1 10*3/uL (0.0-0.87); Eosinophils % 1.8 % (0.00-10.9); Hematocrit 31.9 VOL% (35.7-47.0); Hemoglobin 9.7 GM/DL (12.0-16.0); Immature Granulocytes % 0.6 %; Immature Granulocytes Absolute 0.04 #; Lymphocytes # 1.2 10*3/uL (1.4-4.0); Lymphocytes % 17.2 % (21.3-54.2); Mean Corpuscular HGB Conc 30.4 GM/DL (32-36); Mean Corpuscular Volume 87.4 FL (87-102); Mean Platelet Volume 10.5 FL (9.6-12.0); Monocytes % 12.2 % (1.7-12.7); Neutrophils % 67.8 % (38.7-73.9); Platelet Count 155 T/CUMM (130-400); Red Blood Count 3.65 MC/CUMM (3.8-5.5); Red Cell Distribution Width 16.2 % (9.3-17.3); White Blood Count 7.2 T/CUMM (4-12)
[2020-01-02 07:24] LABS: Calcium 7.6 MG/DL (8.5-10.1); Osmolality,Calculated 284.8 MOS/KG (273-304)
[2020-01-02] MEDS: CALCIUM ACETATE 667 MG CAPSULE PO SCH ×3 (07:39→18:11)
[2020-01-02] MEDS ORDERED: CLINDAMYCIN INJ 900 MG in PREMIX 1 EACH IV ONE (08:28)
[2020-01-02] MEDS: PANTOPRAZOLE 40 MG TABLET PO SCH (10:05)
[2020-01-02] MEDS: ACETAMINOPHEN 325 MG TABLET PO PRN ×2 (10:05→18:11)
[2020-01-02] MEDS: HEPARIN 5,000 UNIT/1 ML VIAL SUBCUT SCH ×2 (10:05→21:40)
[2020-01-02] MEDS: DOCUSATE SODIUM 100 MG CAPSULE PO SCH ×2 (10:05→21:38)
[2020-01-02] MEDS: HYOSCYAMINE 0.125 MG TABLET PO SCH ×3 (10:06→21:38)
[2020-01-02] MEDS: ASPIRIN EC 81 MG TABLET PO SCH (10:06)
[2020-01-02] MEDS: LINACLOTIDE 145 MCG CAPSULE PO SCH (12:55)
[2020-01-02] MEDS: CITALOPRAM 20 MG TABLET PO SCH (21:38)
[2020-01-03 05:42] LABS: Basophils % 0.7 % (0.0-0.8); Eosinophils # 0.2 10*3/uL (0.0-0.87); Eosinophils % 4.5 % (0.00-10.9); Hematocrit 34.3 VOL% (35.7-47.0); Hemoglobin 10.1 GM/DL (12.0-16.0); Immature Granulocytes % 0.7 %; Immature Granulocytes Absolute 0.03 #; Lymphocytes # 1.2 10*3/uL (1.4-4.0); Lymphocytes % 27.5 % (21.3-54.2); Mean Corpuscular HGB Conc 29.4 GM/DL (32-36); Monocytes % 12.5 % (1.7-12.7); Neutrophils % 54.1 % (38.7-73.9); Platelet Count 137 T/CUMM (130-400); Red Blood Count 3.77 MC/CUMM (3.8-5.5); Red Cell Distribution Width 16.3 % (9.3-17.3); White Blood Count 4.5 T/CUMM (4-12)
[2020-01-03 06:02] LABS: Calcium 8.2 MG/DL (8.5-10.1); Osmolality,Calculated 281.4 MOS/KG (273-304)
[2020-01-03 06:20] LABS: Hypochromasia 1+; Microcytosis 1+
[2020-01-03 06:21] LABS: Ovalocytes Few; Platelet Estimate Adequate; Tear Drop Cells Slight
[2020-01-03] MEDS ORDERED: BUPIVACAINE MPF 0.25% 30 ML VIAL ONE (09:23)
[2020-01-03] MEDS ORDERED: LIDOCAINE 1%/EPI INJ 20 ML VIAL ONE (09:23)
[2020-01-03] MEDS ORDERED: propofoL 200 MG/20 ML VIAL IV ONE ×2 (09:34→09:41)
[2020-01-03] MEDS ORDERED: LIDOCAINE 2% 5 ML VIAL ONE (09:34)
[2020-01-03] MEDS ORDERED: TISSUE ADHESIVE 1 EACH APPLICATOR TOP ONE (09:36)
[2020-01-03] MEDS ORDERED: fentaNYL 100 MCG/2 ML VIAL ONE (09:41)
[2020-01-03] MEDS ORDERED: SODIUM CHLORIDE 0.9% 100 ML IV ONE (09:41)
[2020-01-03] MEDS ORDERED: MIDAZOLAM 2 MG/2 ML VIAL ONE (09:41)
[2020-01-03] MEDS: CALCIUM ACETATE 667 MG CAPSULE PO SCH ×4 (10:48→18:01)
[2020-01-03] MEDS: HYOSCYAMINE 0.125 MG TABLET PO SCH ×3 (10:49→21:40)
[2020-01-03] MEDS: DOCUSATE SODIUM 100 MG CAPSULE PO SCH ×2 (10:49→21:40)
[2020-01-03] MEDS: LINACLOTIDE 145 MCG CAPSULE PO SCH (10:49)
[2020-01-03] MEDS: ASPIRIN EC 81 MG TABLET PO SCH (10:49)
[2020-01-03] MEDS: HEPARIN 5,000 UNIT/1 ML VIAL SUBCUT SCH ×2 (10:49→21:40)
[2020-01-03] MEDS: MIDODRINE 5 MG TABLET PO SCH (10:50)
[2020-01-03] MEDS: PANTOPRAZOLE 40 MG TABLET PO SCH (10:50)
[2020-01-03] MEDS ORDERED: HEPARIN 10,000 UNIT/10 ML VIAL IV SCH (14:00)
[2020-01-03] MEDS: GABAPENTIN 300 MG CAPSULE PO SCH (17:37)
[2020-01-03] MEDS: ACETAMINOPHEN 325 MG TABLET PO PRN (21:39)
[2020-01-03] MEDS: CITALOPRAM 20 MG TABLET PO SCH (21:40)
[2020-01-04 05:58] LABS: Basophils % 0.6 % (0.0-0.8); Eosinophils # 0.2 10*3/uL (0.0-0.87); Eosinophils % 3.8 % (0.00-10.9); Hematocrit 32.8 VOL% (35.7-47.0); Hemoglobin 9.8 GM/DL (12.0-16.0); Immature Granulocytes % 0.4 %; Immature Granulocytes Absolute 0.02 #; Lymphocytes # 1.5 10*3/uL (1.4-4.0); Lymphocytes % 31.3 % (21.3-54.2); Mean Corpuscular HGB Conc 29.9 GM/DL (32-36); Mean Corpuscular Volume 89.1 FL (87-102); Mean Platelet Volume 10.5 FL (9.6-12.0); Monocytes % 13.9 % (1.7-12.7); Platelet Count 143 T/CUMM (130-400); Red Blood Count 3.68 MC/CUMM (3.8-5.5); Red Cell Distribution Width 16.2 % (9.3-17.3); White Blood Count 4.7 T/CUMM (4-12)
[2020-01-04 06:22] LABS: Calcium 8.1 MG/DL (8.5-10.1)
[2020-01-04] MEDS: CALCIUM ACETATE 667 MG CAPSULE PO SCH ×2 (08:08→13:50)
[2020-01-04] MEDS: DOCUSATE SODIUM 100 MG CAPSULE PO SCH (10:01)
[2020-01-04] MEDS: ASPIRIN EC 81 MG TABLET PO SCH (10:02)
[2020-01-04] MEDS: PANTOPRAZOLE 40 MG TABLET PO SCH (10:02)
[2020-01-04] MEDS: HYOSCYAMINE 0.125 MG TABLET PO SCH (10:02)
[2020-01-04] MEDS: HEPARIN 5,000 UNIT/1 ML VIAL SUBCUT SCH (10:02)
[2020-01-04] MEDS: LINACLOTIDE 145 MCG CAPSULE PO SCH (10:02)
[2020-01-04 11:41] VITALS: BP 126/54
== END 2020-01-04 15:20 | disposition home health service (06) | DRG 252 ==
LOC: EDUNIT# → N.ED 08:40 → N.EDINP 11:04 → SUATTDRO 11:04 → N.3E 13:17
PROVIDERS: ADMIT Hospitalist; ATTEND Family Medicine

== ENCOUNTER 2020-03-19 08:35 | Inpatient (IN) ==
[2020-03-19] MEDS ORDERED: SODIUM CHLORIDE 0.9% 500 ML IV STA (09:13)
[2020-03-19 09:57] LABS: Albumin 3.1 G/DL (3.4-5.0); Bilirubin,Total 0.6 MG/DL (0.2-1.0); Calcium 8.5 MG/DL (8.5-10.1); Osmolality,Calculated 270.4 MOS/KG (273-304); Potassium 3.8 MMOL/L (3.5-5.1)
[2020-03-19 10:03] LABS: Basophils % 0.1 % (0.0-0.8); Eosinophils # 0.1 10*3/uL (0.0-0.87); Eosinophils % 1.4 % (0.00-10.9); Hematocrit 40.3 VOL% (35.7-47.0); Hemoglobin 11.4 GM/DL (12.0-16.0); Immature Granulocytes % 0.4 %; Immature Granulocytes Absolute 0.03 #; Lymphocytes # 1.3 10*3/uL (1.4-4.0); Lymphocytes % 16.8 % (21.3-54.2); Mean Corpuscular HGB Conc 28.3 GM/DL (32-36); Mean Platelet Volume 10.6 FL (9.6-12.0); Monocytes % 6.7 % (1.7-12.7); Neutrophils % 74.6 % (38.7-73.9); Platelet Count 160 T/CUMM (130-400); Red Blood Count 4.38 MC/CUMM (3.8-5.5); Red Cell Distribution Width 16.7 % (9.3-17.3); White Blood Count 7.7 T/CUMM (4-12)
[2020-03-19] MEDS ORDERED: MEROPENEM 500 MG in SODIUM CHLORIDE 0.9% 100 ML IV ONE (10:34)
[2020-03-19] MEDS ORDERED: MORPHINE 4 MG/1 ML VIAL IV PRN (11:15)
[2020-03-19] MEDS ORDERED: GLUCAGON 1 MG VIAL IM PRN (11:15)
[2020-03-19] MEDS ORDERED: DEXTROSE 50% 25 GM/50 ML VIAL IV PRN (11:15)
[2020-03-19] MEDS ORDERED: BISACODYL 5 MG TABLET PO PRN (11:15)
[2020-03-19] MEDS ORDERED: HEPARIN LOCK FLUSH 500 UNIT/5 ML SYRINGE IV ONE ×2 (11:32→11:44)
[2020-03-19] MEDS: ACETAMINOPHEN 325 MG TABLET PO PRN ×2 (11:53→19:56)
[2020-03-19] MEDS ORDERED: MEROPENEM 500 MG in SODIUM CHLORIDE 0.9% 100 ML IV SCH (12:00)
[2020-03-19] MEDS: CALCIUM ACETATE 667 MG CAPSULE PO SCH ×2 (13:15→17:53)
[2020-03-19] MEDS: ONDANSETRON 4 MG/2 ML VIAL IV PRN (19:54)
[2020-03-19] MEDS: APIXABAN 5 MG TABLET PO SCH (20:48)
[2020-03-19] MEDS: GABAPENTIN 300 MG CAPSULE PO SCH (20:48)
[2020-03-19] MEDS: CITALOPRAM 20 MG TABLET PO SCH (20:49)
[2020-03-20 06:14] LABS: Basophils % 0.3 % (0.0-0.8); Eosinophils # 0.1 10*3/uL (0.0-0.87); Eosinophils % 1.8 % (0.00-10.9); Hematocrit 34.4 VOL% (35.7-47.0); Hemoglobin 10.4 GM/DL (12.0-16.0); Immature Granulocytes % 0.3 %; Immature Granulocytes Absolute 0.02 #; Lymphocytes # 0.7 10*3/uL (1.4-4.0); Lymphocytes % 11.8 % (21.3-54.2); Mean Corpuscular HGB Conc 30.2 GM/DL (32-36); Mean Corpuscular Volume 88.7 FL (87-102); Mean Platelet Volume 10.8 FL (9.6-12.0); Monocytes % 7.2 % (1.7-12.7); Neutrophils % 78.6 % (38.7-73.9); Platelet Count 139 T/CUMM (130-400); Red Blood Count 3.88 MC/CUMM (3.8-5.5); Red Cell Distribution Width 16.7 % (9.3-17.3); White Blood Count 6.1 T/CUMM (4-12)
[2020-03-20 06:35] LABS: Calcium 7.7 MG/DL (8.5-10.1); Osmolality,Calculated 282.8 MOS/KG (273-304); Potassium 4.5 MMOL/L (3.5-5.1)
[2020-03-20] MEDS: APIXABAN 5 MG TABLET PO SCH ×2 (09:08→21:29)
[2020-03-20] MEDS: GABAPENTIN 300 MG CAPSULE PO SCH ×2 (09:08→21:28)
[2020-03-20] MEDS: MIDODRINE 5 MG TABLET PO SCH (09:08)
[2020-03-20] MEDS: CALCIUM ACETATE 667 MG CAPSULE PO SCH ×3 (09:08→17:20)
[2020-03-20] MEDS: LINACLOTIDE 145 MCG CAPSULE PO SCH (09:10)
[2020-03-20] MEDS: ACETAMINOPHEN 325 MG TABLET PO PRN ×2 (13:12→17:13)
[2020-03-20 17:23] LABS: Hepatitis B Core IgM Quant 0.12 Index; Hepatitis B Surface Ag Quant < 0.10 Index; Hepatitis B Surface Ag Result Non-Reactive (NonReactive); Hepatitis C Virus Ab Quant 0.02 Index; Hepatitis C Virus Ab Result Non-Reactive (NonReactive)
[2020-03-20] MEDS: MEROPENEM 500 MG in SODIUM CHLORIDE 0.9% 100 ML IV SCH (21:28)
[2020-03-20] MEDS: CITALOPRAM 20 MG TABLET PO SCH (21:29)
[2020-03-20] MEDS: ONDANSETRON 4 MG/2 ML VIAL IV PRN (22:04)
[2020-03-21] MEDS: ACETAMINOPHEN 325 MG TABLET PO PRN (05:02)
[2020-03-21] MEDS: LINACLOTIDE 145 MCG CAPSULE PO SCH (08:32)
[2020-03-21] MEDS: APIXABAN 5 MG TABLET PO SCH ×2 (08:33→21:44)
[2020-03-21] MEDS: CALCIUM ACETATE 667 MG CAPSULE PO SCH ×3 (08:33→17:08)
[2020-03-21] MEDS: GABAPENTIN 300 MG CAPSULE PO SCH ×2 (08:33→21:44)
[2020-03-21] MEDS: ONDANSETRON 4 MG/2 ML VIAL IV PRN (12:15)
[2020-03-21] MEDS ORDERED: HEPARIN 10,000 UNIT/10 ML VIAL IV PRN (14:13)
[2020-03-21] MEDS ORDERED: CALCIUM CARBONATE CHEW 500 MG TABLET PO PRN (16:47)
[2020-03-21] MEDS: MEROPENEM 500 MG in SODIUM CHLORIDE 0.9% 100 ML IV SCH (21:44)
[2020-03-21] MEDS: CITALOPRAM 20 MG TABLET PO SCH (21:44)
[2020-03-21] MEDS: PANTOPRAZOLE 40 MG TABLET PO SCH (22:40)
[2020-03-22] MEDS: LINACLOTIDE 145 MCG CAPSULE PO SCH (08:14)
[2020-03-22] MEDS: GABAPENTIN 300 MG CAPSULE PO SCH ×2 (08:14→20:09)
[2020-03-22] MEDS: PANTOPRAZOLE 40 MG TABLET PO SCH (08:14)
[2020-03-22] MEDS: MIDODRINE 5 MG TABLET PO SCH (08:14)
[2020-03-22] MEDS: CALCIUM ACETATE 667 MG CAPSULE PO SCH ×3 (08:14→18:11)
[2020-03-22] MEDS: APIXABAN 5 MG TABLET PO SCH ×2 (08:14→20:09)
[2020-03-22 09:53] LABS: Basophils % 0.7 % (0.0-0.8); Eosinophils # 0.1 10*3/uL (0.0-0.87); Eosinophils % 3.2 % (0.00-10.9); Hematocrit 33.8 VOL% (35.7-47.0); Hemoglobin 9.8 GM/DL (12.0-16.0); Immature Granulocytes % 0.2 %; Immature Granulocytes Absolute 0.01 #; Lymphocytes # 1.1 10*3/uL (1.4-4.0); Lymphocytes % 24.5 % (21.3-54.2); Mean Corpuscular Volume 90.4 FL (87-102); Mean Platelet Volume 10.7 FL (9.6-12.0); Monocytes % 10.7 % (1.7-12.7); Neutrophils % 60.7 % (38.7-73.9); Platelet Count 120 T/CUMM (130-400); Red Blood Count 3.74 MC/CUMM (3.8-5.5); Red Cell Distribution Width 16.5 % (9.3-17.3); White Blood Count 4.4 T/CUMM (4-12)
[2020-03-22 09:56] LABS: Calcium 8.4 MG/DL (8.5-10.1); Potassium 3.9 MMOL/L (3.5-5.1)
[2020-03-22 09:57] LABS: Hypochromasia 1+; Microcytosis 1+
[2020-03-22] MEDS ORDERED: LIDOCAINE 2% 5 ML VIAL ONE (14:43)
[2020-03-22] MEDS ORDERED: propofoL 200 MG/20 ML VIAL IV ONE (14:43)
[2020-03-22] MEDS ORDERED: fentaNYL 100 MCG/2 ML VIAL ONE (14:44)
[2020-03-22] MEDS ORDERED: MIDAZOLAM 2 MG/2 ML VIAL ONE (14:44)
[2020-03-22] MEDS ORDERED: LIDOCAINE 1%/EPI INJ 20 ML VIAL ONE (15:02)
[2020-03-22] MEDS ORDERED: TISSUE ADHESIVE 1 EACH APPLICATOR TOP ONE (15:02)
[2020-03-22] MEDS ORDERED: BUPIVACAINE MPF 0.25% 30 ML VIAL ONE (15:02)
[2020-03-22] MEDS ORDERED: ONDANSETRON 4 MG/2 ML VIAL ONE (15:23)
[2020-03-22] MEDS: CITALOPRAM 20 MG TABLET PO SCH (20:10)
[2020-03-23 05:54] LABS: Calcium 8.3 MG/DL (8.5-10.1); Osmolality,Calculated 277.5 MOS/KG (273-304); Potassium 4.1 MMOL/L (3.5-5.1)
[2020-03-23 06:23] LABS: Basophils % 0.4 % (0.0-0.8); Eosinophils # 0.2 10*3/uL (0.0-0.87); Eosinophils % 4.1 % (0.00-10.9); Immature Granulocytes % 0.4 %; Immature Granulocytes Absolute 0.02 #; Lymphocytes # 1.6 10*3/uL (1.4-4.0); Lymphocytes % 33.5 % (21.3-54.2); Mean Corpuscular HGB Conc 28.9 GM/DL (32-36); Mean Corpuscular Volume 90.2 FL (87-102); Mean Platelet Volume 10.7 FL (9.6-12.0); Monocytes % 16.8 % (1.7-12.7); Neutrophils % 44.8 % (38.7-73.9); Platelet Count 126 T/CUMM (130-400); Red Blood Count 3.88 MC/CUMM (3.8-5.5); Red Cell Distribution Width 16.3 % (9.3-17.3); White Blood Count 4.7 T/CUMM (4-12)
[2020-03-23 06:24] LABS: Hemoglobin 10.1 GM/DL (12.0-16.0)
[2020-03-23 06:32] LABS: Band Neutrophils 2 % (0-10); Eosinophils 6 % (0-10); Lymphocytes 31 % (20-55); Platelet Estimate Decreased; Segmented Neutrophils 43 % (50-85); Total Cells Counted 100
[2020-03-23] MEDS: CALCIUM ACETATE 667 MG CAPSULE PO SCH ×3 (08:18→17:13)
[2020-03-23] MEDS: APIXABAN 5 MG TABLET PO SCH ×2 (08:18→20:36)
[2020-03-23] MEDS: LINACLOTIDE 145 MCG CAPSULE PO SCH (08:18)
[2020-03-23] MEDS: GABAPENTIN 300 MG CAPSULE PO SCH ×2 (08:18→20:36)
[2020-03-23] MEDS: PANTOPRAZOLE 40 MG TABLET PO SCH (08:18)
[2020-03-23] MEDS: MIDODRINE 5 MG TABLET PO SCH (09:12)
[2020-03-23] MEDS: CITALOPRAM 20 MG TABLET PO SCH (20:35)
[2020-03-24] MEDS: PANTOPRAZOLE 40 MG TABLET PO SCH (08:34)
[2020-03-24] MEDS: GABAPENTIN 300 MG CAPSULE PO SCH ×2 (08:34→20:21)
[2020-03-24] MEDS: MIDODRINE 5 MG TABLET PO SCH (08:34)
[2020-03-24] MEDS: CALCIUM ACETATE 667 MG CAPSULE PO SCH ×3 (08:35→16:46)
[2020-03-24] MEDS: LINACLOTIDE 145 MCG CAPSULE PO SCH (08:35)
[2020-03-24] MEDS: APIXABAN 5 MG TABLET PO SCH ×2 (08:35→20:21)
[2020-03-24] MEDS: CITALOPRAM 20 MG TABLET PO SCH (20:22)
[2020-03-25 06:30] LABS: Basophils % 0.6 % (0.0-0.8); Eosinophils # 0.2 10*3/uL (0.0-0.87); Eosinophils % 3.2 % (0.00-10.9); Hematocrit 34.5 VOL% (35.7-47.0); Hemoglobin 10.3 GM/DL (12.0-16.0); Lymphocytes # 2.6 10*3/uL (1.4-4.0); Lymphocytes % 49.1 % (21.3-54.2); Mean Corpuscular HGB Conc 29.9 GM/DL (32-36); Mean Corpuscular Volume 88.2 FL (87-102); Neutrophils % 41.1 % (38.7-73.9); Platelet Count 176 T/CUMM (130-400); Red Blood Count 3.91 MC/CUMM (3.8-5.5); Red Cell Distribution Width 16.2 % (9.3-17.3); White Blood Count 5.3 T/CUMM (4-12)
[2020-03-25 06:49] LABS: Osmolality,Calculated 284.7 MOS/KG (273-304); Potassium 4.8 MMOL/L (3.5-5.1)
[2020-03-25 07:00] LABS: Hypochromasia 1+; Microcytosis 1+; Platelet Estimate Adequate
[2020-03-25] MEDS: APIXABAN 5 MG TABLET PO SCH ×2 (09:38→21:17)
[2020-03-25] MEDS: ACETAMINOPHEN 325 MG TABLET PO PRN (09:39)
[2020-03-25] MEDS: GABAPENTIN 300 MG CAPSULE PO SCH ×2 (09:39→21:17)
[2020-03-25] MEDS: MIDODRINE 5 MG TABLET PO SCH (09:39)
[2020-03-25] MEDS: CALCIUM ACETATE 667 MG CAPSULE PO SCH ×3 (09:39→16:51)
[2020-03-25] MEDS: PANTOPRAZOLE 40 MG TABLET PO SCH (09:40)
[2020-03-25] MEDS: LINACLOTIDE 145 MCG CAPSULE PO SCH (09:40)
[2020-03-25] MEDS: ONDANSETRON 4 MG/2 ML VIAL IV PRN (17:46)
[2020-03-25] MEDS: CITALOPRAM 20 MG TABLET PO SCH (21:22)
[2020-03-26 05:41] LABS: Basophils # 0.1 10*3/uL (0.0-0.2); Basophils % 0.9 % (0.0-0.8); Eosinophils # 0.2 10*3/uL (0.0-0.87); Eosinophils % 3.9 % (0.00-10.9); Hemoglobin 9.9 GM/DL (12.0-16.0); Immature Granulocytes % 0.2 %; Immature Granulocytes Absolute 0.01 #; Lymphocytes # 2.6 10*3/uL (1.4-4.0); Lymphocytes % 45.3 % (21.3-54.2); Mean Corpuscular Volume 88.2 FL (87-102); Mean Platelet Volume 10.5 FL (9.6-12.0); Monocytes % 6.8 % (1.7-12.7); Neutrophils % 42.9 % (38.7-73.9); Platelet Count 187 T/CUMM (130-400); Red Blood Count 3.74 MC/CUMM (3.8-5.5); Red Cell Distribution Width 16.1 % (9.3-17.3); White Blood Count 5.7 T/CUMM (4-12)
[2020-03-26 05:58] LABS: Calcium 8.8 MG/DL (8.5-10.1); Osmolality,Calculated 291.5 MOS/KG (273-304)
[2020-03-26 06:11] LABS: Eosinophils 3 % (0-10); Lymphocytes 43 % (20-55); Platelet Estimate Adequate; Segmented Neutrophils 50 % (50-85); Total Cells Counted 100
[2020-03-26 06:12] LABS: Hypochromasia 1+; Microcytosis 1+; Ovalocytes Slight
[2020-03-26] MEDS: CALCIUM ACETATE 667 MG CAPSULE PO SCH ×3 (08:38→17:23)
[2020-03-26] MEDS: GABAPENTIN 300 MG CAPSULE PO SCH ×2 (08:38→20:55)
[2020-03-26] MEDS: MIDODRINE 5 MG TABLET PO SCH (08:38)
[2020-03-26] MEDS: PANTOPRAZOLE 40 MG TABLET PO SCH (08:39)
[2020-03-26] MEDS: APIXABAN 5 MG TABLET PO SCH ×2 (08:39→20:55)
[2020-03-26] MEDS: LINACLOTIDE 145 MCG CAPSULE PO SCH (08:39)
[2020-03-26] MEDS: CITALOPRAM 20 MG TABLET PO SCH (20:55)
[2020-03-27 06:57] LABS: Calcium 9.2 MG/DL (8.5-10.1)
[2020-03-27 07:22] LABS: Basophils % 0.5 % (0.0-0.8); Eosinophils # 0.2 10*3/uL (0.0-0.87); Eosinophils % 3.1 % (0.00-10.9); Hematocrit 37.1 VOL% (35.7-47.0); Hemoglobin 11.2 GM/DL (12.0-16.0); Immature Granulocytes % 0.2 %; Immature Granulocytes Absolute 0.01 #; Lymphocytes # 2.8 10*3/uL (1.4-4.0); Lymphocytes % 43.9 % (21.3-54.2); Mean Corpuscular HGB Conc 30.2 GM/DL (32-36); Mean Corpuscular Volume 88.3 FL (87-102); Mean Platelet Volume 10.2 FL (9.6-12.0); Monocytes % 4.7 % (1.7-12.7); Neutrophils % 47.6 % (38.7-73.9); Platelet Count 224 T/CUMM (130-400); Red Cell Distribution Width 16.4 % (9.3-17.3); White Blood Count 6.4 T/CUMM (4-12)
[2020-03-27] MEDS: CALCIUM ACETATE 667 MG CAPSULE PO SCH ×3 (09:23→17:49)
[2020-03-27] MEDS: APIXABAN 5 MG TABLET PO SCH (09:24)
[2020-03-27] MEDS: LINACLOTIDE 145 MCG CAPSULE PO SCH (09:24)
[2020-03-27] MEDS: GABAPENTIN 300 MG CAPSULE PO SCH (09:24)
[2020-03-27] MEDS: MIDODRINE 5 MG TABLET PO SCH (09:24)
[2020-03-27] MEDS: PANTOPRAZOLE 40 MG TABLET PO SCH (09:24)
[2020-03-27] MEDS ORDERED: LIDOCAINE 1%/EPI INJ 20 ML VIAL ONE (10:02)
[2020-03-27] MEDS ORDERED: BUPIVACAINE MPF 0.25% 30 ML VIAL ONE (10:02)
[2020-03-27] MEDS ORDERED: HEPARIN 5,000 UNIT/1 ML VIAL ONE (10:02)
[2020-03-27] MEDS ORDERED: fentaNYL 100 MCG/2 ML VIAL ONE (10:42)
[2020-03-27] MEDS ORDERED: MIDAZOLAM 2 MG/2 ML VIAL ONE (10:42)
[2020-03-27] MEDS ORDERED: propofoL 200 MG/20 ML VIAL IV ONE (10:43)
[2020-03-27] MEDS ORDERED: ceFAZolin 1,000 MG VIAL ONE (10:51)
[2020-03-27] MEDS ORDERED: SODIUM CHLORIDE 0.9% 250 ML IV SCH (11:00)
[2020-03-27] MEDS ORDERED: PHENYLEPHRINE 1 MG/10 ML SYRINGE IV ONE (11:14)
[2020-03-27 12:39] VITALS: BP 110/75
[2020-03-27] MEDS: ACETAMINOPHEN 325 MG TABLET PO PRN (14:28)
== END 2020-03-27 18:47 | disposition home or self-care (01) | DRG 314 ==
LOC: N.ED 08:35 → SUATTDRO 11:15 → N.EDINP 11:15 → N.5E 12:40
PROVIDERS: ADMIT Emergency Medicine; ATTEND Internal Medicine

== ENCOUNTER 2020-11-09 16:52 | Observation (INO) ==
[2020-11-09] MEDS ORDERED: SODIUM CHLORIDE 0.9% 500 ML IV STA (17:33)
[2020-11-09] MEDS ORDERED: ASPIRIN 325 MG TABLET PO STA (17:33)
[2020-11-09 18:31] LABS: Basophils # 0.1 10*3/uL (0.0-0.2); Basophils % 0.8 % (0.0-0.8); Eosinophils # 0.2 10*3/uL (0.0-0.87); Eosinophils % 3.1 % (0.00-10.9); Hematocrit 46.3 VOL% (35.7-47.0); Hemoglobin 13.8 GM/DL (12.0-16.0); Immature Granulocytes % 0.3 %; Immature Granulocytes Absolute 0.02 #; Lymphocytes # 2.5 10*3/uL (1.4-4.0); Lymphocytes % 32.1 % (21.3-54.2); Mean Corpuscular HGB Conc 29.8 GM/DL (32-36); Mean Corpuscular Volume 94.7 FL (87-102); Mean Platelet Volume 10.6 FL (9.6-12.0); Monocytes % 9.5 % (1.7-12.7); Neutrophils % 54.2 % (38.7-73.9); Platelet Count 155 T/CUMM (130-400); Red Blood Count 4.89 MC/CUMM (3.8-5.5); Red Cell Distribution Width 15.4 % (9.3-17.3); White Blood Count 7.8 T/CUMM (4-12)
[2020-11-09 18:59] LABS: Calcium 7.8 MG/DL (8.5-10.1); Osmolality,Calculated 277.8 MOS/KG (273-304)
[2020-11-09] MEDS ORDERED: DEXTROSE 50% 25 GM/50 ML VIAL IV PRN (19:53)
[2020-11-09] MEDS ORDERED: ONDANSETRON 4 MG/2 ML VIAL IV PRN (19:53)
[2020-11-09] MEDS ORDERED: GLUCAGON 1 MG VIAL IM PRN (19:53)
[2020-11-09] MEDS ORDERED: ZALEPLON 5 MG CAPSULE PO PRN (20:28)
[2020-11-09] MEDS: APIXABAN 5 MG TABLET PO SCH (22:13)
[2020-11-09] MEDS: CALCIUM CARBONATE CHEW 500 MG TABLET PO SCH (22:14)
[2020-11-10] MEDS ORDERED: ACETAMINOPHEN 325 MG TABLET PO PRN (01:18)
[2020-11-10 05:57] LABS: Calcium 7.4 MG/DL (8.5-10.1); Osmolality,Calculated 283.5 MOS/KG (273-304); Potassium 4.5 MMOL/L (3.5-5.1); Risk Ratio 2.87; Thyroid Stimulating Hormone 0.98 uIU/ml (0.358-3.74); VLDL Cholesterol 17.4 MG/DL
[2020-11-10 06:30] LABS: Basophils # 0.1 10*3/uL (0.0-0.2); Basophils % 0.8 % (0.0-0.8); Eosinophils # 0.3 10*3/uL (0.0-0.87); Eosinophils % 4.2 % (0.00-10.9); Hematocrit 41.3 VOL% (35.7-47.0); Hemoglobin 12.2 GM/DL (12.0-16.0); Immature Granulocytes % 0.2 %; Immature Granulocytes Absolute 0.01 #; Lymphocytes # 2.4 10*3/uL (1.4-4.0); Lymphocytes % 39.5 % (21.3-54.2); Mean Corpuscular HGB Conc 29.5 GM/DL (32-36); Mean Corpuscular Volume 93.7 FL (87-102); Mean Platelet Volume 10.6 FL (9.6-12.0); Monocytes % 11.1 % (1.7-12.7); Neutrophils % 44.2 % (38.7-73.9); Platelet Count 126 T/CUMM (130-400); Red Blood Count 4.41 MC/CUMM (3.8-5.5); Red Cell Distribution Width 15.4 % (9.3-17.3); White Blood Count 6.1 T/CUMM (4-12)
[2020-11-10] MEDS ORDERED: MAGNESIUM SULF RIDER 2 GM/50 ML PREMIX IV ONE (08:41)
[2020-11-10] MEDS ORDERED: NON-FORMULARY MEDICATION (Omeprazole 20 MG capsule,delayed release(DR/EC)) PO SCH (09:00)
[2020-11-10] MEDS ORDERED: DOCUSATE SODIUM 100 MG CAPSULE PO SCH (09:00)
[2020-11-10] MEDS ORDERED: MIDODRINE 5 MG TABLET PO SCH (09:00)
[2020-11-10] MEDS ORDERED: ASPIRIN EC 81 MG TABLET PO SCH (09:00)
[2020-11-10] MEDS ORDERED: LINACLOTIDE 145 MCG CAPSULE PO SCH (09:00)
[2020-11-10] MEDS ORDERED: PANTOPRAZOLE 40 MG TABLET PO SCH (09:00)
[2020-11-10] MEDS: CALCIUM ACETATE 667 MG CAPSULE PO SCH ×3 (09:02→17:52)
[2020-11-10] MEDS: APIXABAN 5 MG TABLET PO SCH (09:04)
[2020-11-10] MEDS: CALCIUM CARBONATE CHEW 500 MG TABLET PO SCH (09:04)
[2020-11-10 17:32] VITALS: BP 96/73
== END 2020-11-10 18:11 | disposition home or self-care (01) ==
LOC: N.ED 16:52 → N.EDINP 16:52 → N.5E 20:24
PROVIDERS: ADMIT Internal Medicine; ATTEND Internal Medicine

== ENCOUNTER 2021-01-17 11:30 | Observation (INO) ==
[2021-01-17] MEDS ORDERED: SODIUM CHLORIDE 0.9% 1,000 ML IV STA (12:32)
[2021-01-17 13:28] LABS: Basophils % 0.8 % (0.0-0.8); Eosinophils # 0.2 10*3/uL (0.0-0.87); Eosinophils % 3.4 % (0.00-10.9); Hematocrit 42.7 VOL% (35.7-47.0); Hemoglobin 13.2 GM/DL (12.0-16.0); Immature Granulocytes % 0.2 %; Immature Granulocytes Absolute 0.01 #; Lymphocytes # 2.1 10*3/uL (1.4-4.0); Lymphocytes % 41.4 % (21.3-54.2); Mean Corpuscular HGB Conc 30.9 GM/DL (32-36); Mean Corpuscular Volume 86.8 FL (87-102); Mean Platelet Volume 10.9 FL (9.6-12.0); Monocytes % 9.9 % (1.7-12.7); Neutrophils % 44.3 % (38.7-73.9); Platelet Count 126 T/CUMM (130-400); Red Blood Count 4.92 MC/CUMM (3.8-5.5); Red Cell Distribution Width 15.3 % (9.3-17.3); White Blood Count 5.1 T/CUMM (4-12)
[2021-01-17 13:48] LABS: Albumin 3.1 G/DL (3.4-5.0); Bilirubin,Total 0.4 MG/DL (0.20-1.00); Calcium 10.3 MG/DL (8.5-10.1); Osmolality,Calculated 261.5 MOS/KG (273-304); Potassium 3.1 MMOL/L (3.5-5.1)
[2021-01-17] MEDS ORDERED: SODIUM CHLORIDE 0.9% 500 ML IV STA ×2 (14:01→16:57)
[2021-01-17] MEDS ORDERED: MIDODRINE 2.5 MG TABLET PO ONE (16:58)
[2021-01-17 18:40] LABS: Sedimentation Rate-Westergren 65 MM/HR (0-30)
[2021-01-17] MEDS ORDERED: ONDANSETRON 4 MG/2 ML VIAL IV PRN (18:49)
[2021-01-18] MEDS ORDERED: INFLUENZA VIRUS VACCINE 0.5 ML SYRINGE IM ONE (01:48)
[2021-01-18 05:58] LABS: Albumin 2.6 G/DL (3.4-5.0); Bilirubin,Total 0.7 MG/DL (0.20-1.00); Calcium 8.6 MG/DL (8.5-10.1); Osmolality,Calculated 272.7 MOS/KG (273-304); Potassium 3.6 MMOL/L (3.5-5.1); Total Protein 7.1 G/DL (6.4-8.2)
[2021-01-18 06:36] LABS: Basophils # 0.1 10*3/uL (0.0-0.2); Eosinophils # 0.3 10*3/uL (0.0-0.87); Eosinophils % 6.3 % (0.00-10.9); Hematocrit 36.4 VOL% (35.7-47.0); Immature Granulocytes % 0.2 %; Immature Granulocytes Absolute 0.01 #; Lymphocytes # 2.3 10*3/uL (1.4-4.0); Lymphocytes % 44.1 % (21.3-54.2); Mean Corpuscular HGB Conc 29.4 GM/DL (32-36); Mean Corpuscular Volume 93.3 FL (87-102); Mean Platelet Volume 11.3 FL (9.6-12.0); Monocytes % 15.4 % (1.7-12.7); NRBC # 0.02 10*3/uL; Platelet Count 130 T/CUMM (130-400); Red Cell Distribution Width 15.6 % (9.3-17.3); White Blood Count 5.1 T/CUMM (4-12)
[2021-01-18 06:38] LABS: Hemoglobin 10.7 GM/DL (12.0-16.0)
[2021-01-18 06:42] LABS: Eosinophils 8 % (0-10); Hypochromasia 1+; Lymphocytes 42 % (20-55); Microcytosis 1+; Platelet Estimate Normal; Segmented Neutrophils 43 % (50-85); Total Cells Counted 100
[2021-01-18] MEDS: MIDODRINE 5 MG TABLET PO SCH ×2 (08:56→21:42)
[2021-01-18] MEDS: PANTOPRAZOLE 40 MG TABLET PO SCH (08:56)
[2021-01-18] MEDS: FLUDROCORTISONE 0.1 MG TABLET PO SCH (21:42)
[2021-01-18] MEDS: APIXABAN 5 MG TABLET PO SCH (21:42)
[2021-01-19 06:14] LABS: Potassium 3.7 MMOL/L (3.5-5.1)
[2021-01-19 06:28] LABS: Basophils # 0.1 10*3/uL (0.0-0.2); Basophils % 0.9 % (0.0-0.8); Eosinophils # 0.3 10*3/uL (0.0-0.87); Eosinophils % 5.2 % (0.00-10.9); Hemoglobin 9.3 GM/DL (12.0-16.0); Immature Granulocytes % 0.2 %; Immature Granulocytes Absolute 0.01 #; Lymphocytes # 2.2 10*3/uL (1.4-4.0); Lymphocytes % 39.6 % (21.3-54.2); Mean Corpuscular HGB Conc 29.1 GM/DL (32-36); Mean Corpuscular Volume 92.8 FL (87-102); Mean Platelet Volume 11.6 FL (9.6-12.0); Monocytes % 14.9 % (1.7-12.7); Neutrophils % 39.2 % (38.7-73.9); Platelet Count 142 T/CUMM (130-400); Red Blood Count 3.45 MC/CUMM (3.8-5.5); Red Cell Distribution Width 15.6 % (9.3-17.3); White Blood Count 5.6 T/CUMM (4-12)
[2021-01-19] MEDS: FLUDROCORTISONE 0.1 MG TABLET PO SCH (08:12)
[2021-01-19] MEDS: MIDODRINE 5 MG TABLET PO SCH (08:13)
[2021-01-19] MEDS: APIXABAN 5 MG TABLET PO SCH (08:13)
[2021-01-19] MEDS: PANTOPRAZOLE 40 MG TABLET PO SCH (08:13)
[2021-01-19] MEDS ORDERED: LINACLOTIDE 145 MCG CAPSULE PO SCH (09:00)
[2021-01-19] MEDS ORDERED: HYDROCORTISONE 100 MG VIAL IV SCH (10:30)
[2021-01-19 12:38] VITALS: BP 98/48
[2021-01-19] MEDS ORDERED: MIDODRINE 2.5 MG TABLET PO SCH (15:00)
== END 2021-01-19 16:32 | disposition home or self-care (01) ==
LOC: N.ED 11:30 → N.EDINP 11:30 → SUATTDRO 18:49 → N.TELES 20:07
PROVIDERS: ADMIT Internal Medicine; ATTEND Emergency Medicine

== ENCOUNTER 2021-10-28 10:04 | Observation (INO) ==
[2021-10-28] MEDS ORDERED: SODIUM CHLORIDE 0.9% 500 ML IV STA (11:31)
[2021-10-28 12:23] LABS: Basophils % 0.4 % (0.0-0.8); Eosinophils # 0.1 10*3/uL (0.0-0.87); Eosinophils % 1.9 % (0.00-10.9); Hematocrit 38.4 VOL% (35.7-47.0); Hemoglobin 11.5 GM/DL (12.0-16.0); Immature Granulocytes % 0.3 %; Immature Granulocytes Absolute 0.02 #; Lymphocytes # 2.1 10*3/uL (1.4-4.0); Lymphocytes % 29.9 % (21.3-54.2); Mean Corpuscular HGB Conc 29.9 GM/DL (32-36); Mean Corpuscular Volume 93.9 FL (87-102); Mean Platelet Volume 11.1 FL (9.6-12.0); Monocytes # 0.4 10*3/uL (0.11-0.8); Monocytes % 5.9 % (1.7-12.7); Neutrophils % 61.6 % (38.7-73.9); Platelet Count 141 T/CUMM (130-400); Red Blood Count 4.09 MC/CUMM (3.8-5.5); White Blood Count 6.9 T/CUMM (4-12)
[2021-10-28 12:41] LABS: Albumin 2.9 G/DL (3.4-5.0); Bilirubin,Total 0.4 MG/DL (0.20-1.00); Calcium 8.1 MG/DL (8.5-10.1); Osmolality,Calculated 283.7 MOS/KG (273-304); Potassium 4.5 MMOL/L (3.5-5.1); Total Protein 7.7 G/DL (6.4-8.2)
[2021-10-28] MEDS ORDERED: MEROPENEM 500 MG in SODIUM CHLORIDE 0.9% 100 ML IV ONE (12:48)
[2021-10-28] MEDS: HEPARIN 5,000 UNIT/1 ML VIAL SUBCUT SCH ×2 (16:55→22:54)
[2021-10-28] MEDS: CALCIUM ACETATE 667 MG CAPSULE PO SCH (16:55)
[2021-10-28] MEDS: MIDODRINE 5 MG TABLET PO SCH ×2 (16:55→20:56)
[2021-10-28] MEDS: ACETAMINOPHEN 325 MG TABLET PO PRN (20:56)
[2021-10-29 05:50] LABS: Basophils % 0.5 % (0.0-0.8); Eosinophils # 0.1 10*3/uL (0.0-0.87); Eosinophils % 2.5 % (0.00-10.9); Hematocrit 35.3 VOL% (35.7-47.0); Hemoglobin 10.6 GM/DL (12.0-16.0); Immature Granulocytes % 0.4 %; Immature Granulocytes Absolute 0.02 #; Lymphocytes # 1.8 10*3/uL (1.4-4.0); Lymphocytes % 32.1 % (21.3-54.2); Mean Corpuscular Volume 92.9 FL (87-102); Mean Platelet Volume 11.3 FL (9.6-12.0); Monocytes # 0.5 10*3/uL (0.11-0.8); Monocytes % 9.1 % (1.7-12.7); Neutrophils % 55.4 % (38.7-73.9); Platelet Count 125 T/CUMM (130-400); Red Cell Distribution Width 13.9 % (9.3-17.3); White Blood Count 5.5 T/CUMM (4-12)
[2021-10-29 06:10] LABS: Alanine Aminotransferase 11 U/L (13-56); Albumin 2.7 G/DL (3.4-5.0); Alkaline Phosphatase 125 U/L (45-117); Aspartate Amino Transferase 14 U/L (0-37); Bilirubin,Total < 0.39 MG/DL (0.20-1.00); Blood Urea Nitrogen 54 MG/DL (7-18); Calcium 8.2 MG/DL (8.5-10.1); Carbon Dioxide 22 MMOL/L (21-32); Chloride 110 MMOL/L (98-107); Glucose 82 MG/DL (74-106); Osmolality,Calculated 296.1 MOS/KG (273-304); Phosphorous 3.5 MG/DL (2.5-4.9); Potassium 5.2 MMOL/L (3.5-5.1); Sodium 142 MMOL/L (136-145)
[2021-10-29] MEDS: CALCIUM ACETATE 667 MG CAPSULE PO SCH ×3 (09:05→17:58)
[2021-10-29] MEDS: ACETAMINOPHEN 325 MG TABLET PO PRN (09:05)
[2021-10-29] MEDS: HEPARIN 5,000 UNIT/1 ML VIAL SUBCUT SCH ×2 (09:06→18:00)
[2021-10-29] MEDS: PANTOPRAZOLE 40 MG TABLET PO SCH (09:06)
[2021-10-29] MEDS: MIDODRINE 5 MG TABLET PO SCH ×3 (09:06→21:41)
[2021-10-29] MEDS ORDERED: HEPARIN 10,000 UNIT/10 ML VIAL IV PRN (13:42)
[2021-10-30] MEDS: HEPARIN 5,000 UNIT/1 ML VIAL SUBCUT SCH ×2 (02:15→10:15)
[2021-10-30 05:58] LABS: Basophils % 0.4 % (0.0-0.8); Eosinophils # 0.2 10*3/uL (0.0-0.87); Eosinophils % 3.1 % (0.00-10.9); Hematocrit 34.6 VOL% (35.7-47.0); Hemoglobin 10.5 GM/DL (12.0-16.0); Immature Granulocytes % 0.4 %; Immature Granulocytes Absolute 0.02 #; Lymphocytes # 1.5 10*3/uL (1.4-4.0); Lymphocytes % 27.7 % (21.3-54.2); Mean Corpuscular HGB Conc 30.3 GM/DL (32-36); Mean Corpuscular Volume 92.8 FL (87-102); Mean Platelet Volume 12.2 FL (9.6-12.0); Monocytes # 0.5 10*3/uL (0.11-0.8); Monocytes % 8.5 % (1.7-12.7); Neutrophils % 59.9 % (38.7-73.9); Platelet Count 123 T/CUMM (130-400); Red Blood Count 3.73 MC/CUMM (3.8-5.5); Red Cell Distribution Width 13.8 % (9.3-17.3); White Blood Count 5.5 T/CUMM (4-12)
[2021-10-30 06:15] LABS: Calcium 8.5 MG/DL (8.5-10.1); Osmolality,Calculated 287.4 MOS/KG (273-304); Potassium 5.1 MMOL/L (3.5-5.1)
[2021-10-30] MEDS: ACETAMINOPHEN 325 MG TABLET PO PRN (08:53)
[2021-10-30] MEDS ORDERED: LINACLOTIDE 145 MCG CAPSULE PO SCH (09:41)
[2021-10-30] MEDS: MIDODRINE 5 MG TABLET PO SCH (10:15)
[2021-10-30] MEDS: CALCIUM ACETATE 667 MG CAPSULE PO SCH ×2 (10:15→12:29)
[2021-10-30] MEDS: PANTOPRAZOLE 40 MG TABLET PO SCH (10:15)
[2021-10-30 12:09] VITALS: BP 96/47
[2021-10-31] MEDS ORDERED: LINACLOTIDE 145 MCG CAPSULE PO SCH (09:00)
== END 2021-10-30 12:57 | disposition home or self-care (01) ==
LOC: N.ED 10:04 → INTOOBSV 13:58 → N.EDINP 13:58 → SUATTDRO 13:58 → N.5E 15:01
PROVIDERS: ADMIT Internal Medicine; ATTEND Internal Medicine